=== PATIENT | female | born 1935 | race Caucasian/White ===

== ENCOUNTER 2019-05-15 10:06 | Outpatient (CLI) | payer MEDICARE, SELFPAY ==
--- NOTE | 2019-05-15 | XR_ITS ---
WS: [id number] LEFT ANKLE: 3 VIEW(S) TECHNIQUE: AP, oblique(s) and lateral. HISTORY: SPRAIN OF LEFT ANKLE COMPARISON: None available. Normal anatomic alignment with no fracture or dislocation. Mild narrowing of the joint space. Diffuse mild osteopenia. No soft tissue abnormality. XR/XR ankle LT min 3V* [id number] IMPRESSION: Mild osteopenia and joint space narrowing. Otherwise negative.
== END 2019-05-15 10:07 | disposition home or self-care (01) ==
LOC: RADOUTREAD 13:47
PROVIDERS: Visit Provider Family Medicine
DX: Z76.89 Persons encountering health services in other specified circumstances (principal)

== ENCOUNTER 2023-01-11 13:36 | Outpatient (CLI) | payer MEDICARE, SELFPAY ==
--- NOTE | 2023-01-11 | MR_ITS ---
WS: [id number] MRI LUMBAR SPINE WITHOUT CONTRAST TECHNIQUE: Sagittal T1, T2 and STIR imaging. Axial T1 and T2 imaging. Gadolinium was not administered due to patient's inability to tolerate further imaging CLINICAL INFORMATION: LOW BACK PAIN COMPARISON: None. FINDINGS: Advanced thoracolumbar scoliosis convex RIGHT lumbar spine limits examination. Some images degraded b y patient motion. Advanced disc space narrowing throughout the lumbar spine. Mild central canal steno sis in the cervical spine on the cardiology physician assistant imaging with slight anterolisthesis C3 on C4. Disc bulging wor se at C4-C5 C5-C6 and C6-C7. Small central protrusion T10-11. L1-L2: Mild disc bulge with mild central canal stenosis. Impingement LEFT subarticular recess. Mild f acet arthropathy. Mild LEFT foraminal narrowing. L2-L3: Disc osteophyte complex with endplate ridging. Mild central canal stenosis. Impingement LEFT s ubarticular recess. Mild facet arthropathy. Mild LEFT foraminal narrowing. L3-L4: Disc osteophyte complex with endplate ridging. Moderate central canal stenosis. Impingement tr aversing L4 nerve roots bilaterally. Moderate facet arthropathy. Moderate LEFT foraminal narrowing. L4-L5: Small central disc protrusion in combination with facet arthropathy and ligamentum flavum hype rtrophy results in severe central canal stenosis. Mild LEFT and severe RIGHT foraminal narrowing. L5-S1: Mild disc bulging with slight impingement traversing S1 nerve roots bilaterally. Moderate to a dvanced facet arthropathy. Moderate RIGHT and mild LEFT foraminal narrowing. Partially visualized sacral insufficiency fractures with edema. Partially visualized slightly displac ed fracture involving the upper sacrum with evidence of healing. This will be discussed on the sacral MRI. IMPRESSION: Advanced thoracolumbar scoliosis limits examination. 1. Severe central canal stenosis L4-5 due to disc bulging with facet arthropathy and ligamentum flav um hypertrophy. Central canal measures only 5 mm at this level. 2. Mild central canal stenosis L1-2 and L2-3 with impingement LEFT subarticular recess at these leve ls. 3. Moderate central canal stenosis L3-4. 4. Severe RIGHT L4-5 foraminal narrowing impinges the exiting RIGHT L4 nerve root. Moderate RIGHT L5 -S1 foraminal narrowing. Moderate LEFT L3-4 foraminal narrowing. 5. Partially visualized edema with fractures/insufficiency fractures in the sacrum. This will be dis cussed on the sacral MRI.
--- NOTE | 2023-01-11 13:51 | MR_ITS ---
WS: [id number] INDICATION: Sacral pain TECHNIQUE: Coronal T2, coronal STIR, sagittal T1, sagittal T2, axial T1, axial T2. FINDINGS: Some images are graded by motion Diffuse bilateral sacral edema with visualized fracture lines of the sacral ala compatible with sacra l insufficiency fractures. Associated presacral soft tissue edema. In addition evidence of partially healed fracture involving the anterior S2 vertebral body with degenerative edema at S1 and S2. Advanced thoracolumbar scoliosis partially visualized. IMPRESSION: 1. Diffuse sacral edema with bilateral sacral insufficiency fractures with visualized fracture lines in the sacral ala. 2. Evidence of partially healed fracture involving the anterior S2 vertebral body in the midline. 3. Presacral soft tissue edema. 4. Thoracolumbar scoliosis.
== END 2023-01-11 13:37 | disposition home or self-care (01) ==
PROVIDERS: PCP Family Medicine; Visit Provider Family Medicine
DX: M54.50 Low back pain, unspecified (principal); M41.84 Other forms of scoliosis, thoracic region
CPT/HCPCS: 72148; 72158; A9577

== ENCOUNTER 2024-07-02 12:07 | Inpatient (IN) | payer MEDICARE, SELFPAY ==
[2024-07-02] VITALS (7 sets, daily range): BP systolic 120–153; BP diastolic 71–93; PULSE 66–75; RESP 16–19; TEMP 36.5; O2SAT 93–95; BMI 13.7
--- NOTE | 2024-07-02 14:11 | ED_ITS ---
HPI - COVID 2 General: Chief Complaint: COVID symptoms Stated Complaint: not eatting/drinking Time Seen by Provider: 07/02/24 14:11 History of Present Illness: 89-year-old female presents to the emerg ency room with complaint of shortness of breath chest congestion nonproductive cough. She was seen over the weekend in urgent care and given doxycycline and has not had any improvement. She noticed anything she eats she becomes nauseated she has not vomited. She has had some weight loss. She is significantly underweight to begin with. COVID 19 common symptoms: positive non-productive cough, dyspnea, fatigue, body aches, nausea and vomiting; negative fever(s) or chills COVID 19 other sytmptoms: negative chest pain COVID Results: 2 SARS-CoV-2 (PCR) Negative (Negative) 07/02/24 13:10 07/02/24 Related Data Home Medications ?Medication ?Instructions ?Recorded ?Confirmed doxycycline hyclate 100 mg capsule 100 mg PO BID acute bronchitis 07/02/24 07/02/24 escitalopram oxalate 10 mg tablet 10 mg PO QPM 5 07/02/24 gemfibrozil 600 mg tablet 600 mg PO BID 07/02/2407/02 levothyroxine 50 mcg tablet 50 mcg PO DAILY 07/02/24 0 07/02/24 losartan 100 1 tab PO DAILY 07/02/2406/14 mg-hydrochlorothiazide 25 mg tablet metoprolol tartrate 50 mg tablet 50 mg PO BID 07/02/24 07/02/24 tramadol 50 mg tablet 100 mg PO Q8H 07/02/2407/02 Allergies Allergy/AdvReac Type Severity Reaction Status Date / Time No Known Allergies Allergy Verified 07/02/24 13:12 Review of Systems 2 Const: Reports: body aches, change in appetite, change in weight, fatigue and malaise; Denies: fever(s) or chills Card: Denies: chest pain Resp: Reports: dyspnea, non-productive cough, wheezing and chest congestion GI: Reports: abdominal pain, nausea and vomiting; Denies: hematemesis, coffee ground emesis or hematochezia : Denies: dysuria, urinary frequency or urinary urgency Musc: Denies: neck pain or back pain Skin/Breast: Denies: rash PFSH ED 2 PFSH: Medical History Back pain Depression Hypothyroidism Dehydration Hypertension Physical Exam 2 Const: COMMON NORMALS: no acute distress GENERAL APPEARANCE: cooperative and comfortable ORIENTATION/CONSCIOUSNESS: Yes awake, Yes oriented to person, Yes oriented to place and Yes oriented to time HENMT: COMMON NORMALS: normocephalic, atraumatic and hearing grossly normal bilaterally HEAD & SCALP: normocephalic and atraumatic Resp: COMMON NORMALS: normal respiratory effort, No retractions, No use of accessory muscles and clear to auscultation bilaterally AUSCULTATION: clear to auscultation bilaterally Cardio: COMMON NORMALS: regular rate, regular rhythm and No murmurs present (Cardio) RATE: regular rate RHYTHM: regular rhythm GI: COMMON NORMALS: Soft to palpation and No hepatosplenomegaly present A USCULTATION: Yes normoactive bowel sounds PALPATION: Yes Soft to palpation, No Tenderness to palpation present (GI), No Guarding due to palpation present (GI) and Yes No hepatosplenomegaly present Extremity: COMMON NORMALS: normal to inspection, capillary refill normal, no clubbing, cyanosis or edema, no calf tenderness and no pedal edema Neuro: SENSORIUM/ORIENTATION: Yes oriented to person, Yes oriented to place and Yes oriented to time Skin: COMMON NORMALS: no rashes or lesions noted GENERAL SKIN EXAM: no rashes or lesions noted Course 2 Vital Signs: Vital signs: Vital Signs Temperature 97.7 F 07/02/24 13:09 Pulse Rate 69 07/03/24 05:38 Respiratory Rate 16 07/02/24 18:37 Blood Pressure 153/93 07/02/24 18:24 Pulse Oximetry 93 07/02/24 22:39 Oxygen Delivery Me thod Room Air 07/02/24 22:39 MDM - COVID Medical Decision Making Hyponatremia with acute kidney injury. Positive for RSV. Discussed with Dr. Alicia. Oxygen saturations normal placed on observation Medical Records I reviewed the patient's medical records. Lab Data I reviewed the patient's lab results. 07/03/24 04:14 07/03/24 04:14 Radiology Impressions Chest X-Ray 07/02/24 14:38 Impression: Atherosclerosis and hyperinflation. Laboratory Results WBC 11.58 10^3/uL (3.29-11.43) H 07/02/24 14:43 RBC 4.35 10^6/uL (3.85-5.65) 07/02/24 14:43 Hgb 12.50 g/dL (11.27-16.99) 07/02/24 14:43 Hct 37.8 % (36-47) 07/02/24 14:43 MCV 86.9 fl (85-98) 07/02/24 14:43 MCH 28.7 pg (27-33) 07/02/24 14:43 MCHC 33.1 g/dL (30-55) 07/02/24 14:43 RDW 14.0 % (12.1-15.1) 07/02/24 14:43 Plt Count 413 10^3/cmm (157-399) H 07/02/24 14:43 MPV 9.8 fL (7.4-10.4) 07/02/24 14:43 Lymph % (Auto) Not Reportable 07/02/24 14:43 Mayes % (Auto) Not Reportable 07/02/24 14:43 Lymph # (Auto) Not Reportable 07/02/24 14:43 Mayes # (Auto) Not Reportable 07/02/24 14:43 Total Counted 100 (0-100) 07/02/24 14:43 Atypical Lymphs % 0.0 % (0-5) 07/02/24 14:43 Absolute Neutrophils 7.9 10^3/cmm (1.4-6.5) H 07/02/24 14:43 Segmented Neutrophils 66 % 07/02/24 14:43 Band Neutrophils 2.0 % 07/02/24 14:43 Absolute Lymphocytes 2.0 10^3/cmm (1.2-3.4) 07/02/24 14:43 Lymphocytes (Manual) 17 % 07/02/24 14:43 Monocytes (Manual) 10.0 % 07/02/24 14:43 Absolute Monocytes 1.2 10^3/cmm (0.1-0.6) H 07/02/24 14:43 Eosinophils (Manual) 1 % 07/02/24 14:43 Absolute Eosinophils 0.1 10^3/cmm (0.0-0.7) 07/02/24 14:43 Basophils (Manual) 1.0 % 07/02/24 14:43 Absolute Basophils 0.1 10^3/cmm (0.0-0.2) 07/02/24 14:43 Metamyelocytes 1.0 % 07/02/24 14:43 Myelocytes 2.0 % 07/02/24 14:43 Platelet Estimate Increased (Normal) H 07/02/24 14:43 Sodium 118 mmol/L (136-145) L* 07/02/24 14:43 Potassium 3.7 mmol/L (3.5-5.1) 07/02/24 14:43 Chloride 78 mmol/L (98-107) L 07/02/24 14:43 Carbon Dioxide 23 mmol/L (22-29) 07/02/24 14:43 Anion Gap 20.7 (5-19) H 07/02/24 14:43 BUN 29 mg/dL (8-23) H 07/02/24 14:43 Creatinine 1.2 mg/dL (0.5-0.9) H 07/02/24 14:43 GFR Calculation Not Reportable 07/02/24 14:43 Glucose 110 mg/dL (65-115) 07/02/24 14:43 Calculated Osmolality 252 mOsm/kg (285-295) L 07/02/24 14:43 Calcium 9.1 mg/dL (8.5-10.5) 07/02/24 14:43 Total Bilirubin 0.7 mg/dL (0.15-1.2) 07/02/24 14:43 AST 27 U/L (0-32) 07/02/24 14:43 ALT 12 U/L (0-33) 07/02/24 14:43 Alkaline Phosphatase 127 U/L (35-105) H 07/02/24 14:43 Creatine Kinase 206 U/L (26-192) H 07/02/24 14:43 Total Protein 7.4 g/dL (6.6-8.7) 07/02/24 14:43 Albumin 3.7 g/dL (3.5-5.2) 07/02/24 14:43 Globulin 3.7 g/dL (1.3-4.6) 07/02/24 14:43 Urine Color Yellow (Yellow) 07/02/24 15:58 Urine Appearance Clear (CLEAR) 07/02/24 15:58 Urine pH 6.0 (5-7) 07/02/24 15:58 Ur Specific [place] 1.014 (1.005-1.030) 07/02/24 15:58 Urine Protein Trace (Negative) A 07/02/24 15:58 Urine Glucose (UA) Negative (Normal) 07/02/24 15:58 Urine Ketones Negative (Negative) 07/02/24 15:58 Urine Blood Negative (Negative) 07/02/24 15:58 Urine Nitrate Negative (Negative) 07/02/24 15:58 Urine Bilirubin Negative (Negative) 07/02/24 15:58 Urine Urobilinogen 1.0 mg/dL (Negative) 07/02/24 15:58 Ur Leukocyte Esterase Negative (Negative) 07/02/24 15:58 Urine RBC 0-2 /hpf (0-2) 07/02/24 15:58 Urine WBC 0-5 /hpf (0-5) 07/02/24 15:58 Ur Squamous Epith Cells 0-5 /hpf (0-5) 07/02/24 15:58 Amorphous Sediment Not Reportable 07/02/24 15:58 Urine Bacteria None seen /hpf (NONE) 07/02/24 15:58 Hyaline Casts 0-4 /lpf H 07/02/24 15:58 Ur Random Sodium 55 mmol/L 07/02/24 15:58 Ur Random Chloride 52 mmol/L 07/02/24 15:58 Urine Creatinine 79 mg/dL (28-217) 07/02/24 15:58 Influenza A (PCR) Negative (Negative) 07/02/24 13:10 Influenza Type B (PCR) Negative (Negative) 07/02/24 13:10 RSV (PCR) Positive (Negative) A 07/02/24 13:10 SARS-CoV-2 (PCR) Negative (Negative) 07/02/24 13:10 2 SARS-CoV-2 (PCR) Negative (Negative) 07/02/24 13:10 07/02/24 All radiology interpretation(s) finalized by discharge Discharge Plan Discharge Patient Disposition: Placed in Observation Admit Provider: Vidya Alicia Clinical Impression: Hyponatremia, KRISTEN (acute kidney injury), RSV bronchiolitis Coding Level of Care Code ED Information Assistant for Darshanag Julio César
--- NOTE | 2024-07-02 14:34 | ECG_ITS ---
[facility] Date: 2024-07-02 Pat Name: Shruti Ureña Department: Room: Gender: Female Parker: : 1935 Requested By: Jose Eduardo Malagon Order Number: [id number] Brigid MD: Akhil Castro M.D. Measurements Intervals [place] Rate: 69 P: 75 OK: 163 QRS: 78 QRSD: 90 T: 84 QT: 428 QTc: 460 Interpretive Statements SINUS RHYTHM POSSIBLE RIGHT VENTRICULAR CONDUCTION DELAY [RSR (QR) IN V1/V2] No previous ECG available for comparison Electronically Signed On 07-02-2024 22:00:07 CDT by Akhil Castro M.D. [email or web address]
--- NOTE | 2024-07-02 14:38 | XR_ITS ---
WS: [id number] Portable AP semiupright chest, 07/02/2024 Clinical Data: dyspnea/cough Comparison: None. Findings: No nodules, masses or effusions are seen. The heart is normal. The pulmonary vascularity is not increased. No pneumonia or pneumothorax is seen. The aortic arch shows calcification and tortuosity. The diaphragms are flattened. There is a small calcification over the greater tuberosity of the right shoulder, probably calcific bursitis and/or tendinitis. XR/XR chest 1V portable [id number] Impression: Atherosclerosis and hyperinflation.
[2024-07-02 15:06] LABS: Hematocrit 37.8 % (36-47); Mean Corpuscular HGB Conc 33.1 g/dL (30-55); Mean Corpuscular Hemoglobin 28.7 pg (27-33); Mean Corpuscular Volume 86.9 fl (85-98); Mean Platelet Volume 9.8 fL (7.4-10.4); Platelet Count 413 10^3/cmm (157-399); Red Blood Count 4.35 10^6/uL (3.85-5.65); White Blood Count 11.58 10^3/uL (3.29-11.43)
[2024-07-02 15:26] LABS: Slide Review Slide Review Perform
[2024-07-02 15:27] LABS: Absolute Eosinophils 0.1 10^3/cmm (0.0-0.7); Absolute Neutrophil 7.9 10^3/cmm (1.4-6.5); Absolute Segmented Neutrophil 7.6 10/cmm (1.6-7.1); Band Neutrophils Absolute 0.2 10^3/cmm (0.0-1.2); Basophils Absolute 0.1 10^3/cmm (0.0-0.2); Eosinophils 1 %; Lymphocytes 17 %; Monocytes Absolute 1.2 10^3/cmm (0.1-0.6); Platelet Estimate Increased (Normal); Segmented Neutrophils 66 %; Total Cells Counted 100 (0-100)
[2024-07-02 15:28] LABS: Alanine Aminotransferase 12 U/L (0-33); Albumin Level 3.7 g/dL (3.5-5.2); Alkaline Phosphatase 127 U/L (35-105); Anion Gap 20.7 (5-19); Aspartate Amino Transferase 27 U/L (0-32); Blood Urea Nitrogen 29 mg/dL (8-23); Calcium 9.1 mg/dL (8.5-10.5); Carbon Dioxide 23 mmol/L (22-29); Chloride 78 mmol/L (98-107); Creatine Phosphokinase 206 U/L (26-192); Globulin 3.7 g/dL (1.3-4.6); Glucose 110 mg/dL (65-115); Osmolality Calculated 252 mOsm/kg (285-295); Potassium 3.7 mmol/L (3.5-5.1); Total Bilirubin 0.7 mg/dL (0.15-1.2); Total Protein 7.4 g/dL (6.6-8.7)
[2024-07-02 15:30] LABS: Sodium 118 mmol/L (136-145)
[2024-07-02] MEDS: sodium chloride 0.9% 1,000 ML 999 ML IV (16:01)
[2024-07-02 16:17] LABS: Bilirubin Urine Negative (Negative); Blood Urine Negative (Negative); Glucose Urine UA Negative (Normal); Ketones Urine Negative (Negative); Leukocyte Esterase Urine Negative (Negative); Nitrate Urine Negative (Negative); Protein Urine Trace (Negative); Specific Gravity, Urine 1.014 (1.005-1.030); Urine Appearance Clear (CLEAR); Urine Color Yellow (Yellow)
[2024-07-02 16:23] LABS: Add Urine Microscopic? YES; Bacteria Urine None Seen /hpf; Hyaline Casts Urine 0-4 /lpf; RBC Urine 0-2 /hpf (0-2); Squamous Epithelial Cell Urine 0-5 /hpf (0-5); WBC Urine 0-5 /hpf (0-5)
[2024-07-02 16:24] LABS: Influenza A NEGATIVE (Negative); Influenza B NEGATIVE (Negative); SARS-CoV-2 PCR NEGATIVE (Negative)
[2024-07-02 16:29] LABS: Respiratory Syncytial Virus Ce POSITIVE (Negative)
[2024-07-02 16:35] LABS: Add Urine Culture? No
--- NOTE | 2024-07-02 17:35 | PM.CONSULT ---
Providers/Reason For Consult Consulting Physician/Specialty*: mickey jacobs md/ telenephrology Reason for Consult*: hyponatremia Requesting Physician: Dr Campbell Attending Physician: Vidya Alicia MD Primary Care Provider: Crissy Cruz MD History of Present Illness History of Present Illness Shruti Ureña is a 89 year old female brought to the emergency room for confusion. The patient's family gave most of the history the patient had been feeling well for the last couple weeks she went to see urgent care and was started doxycycline. The patient at home is on Lexapro she also takes losartan hydrochlorothiazide however per the family there is no new medication. She has not been eating well for the last couple weeks not drinking fluids. They brought her to the hospital for fear of volume depletion. In the emergency room she was found of a sodium of 118. And also elevated creatinine. Review of Systems Narrative: Weak lethargic poor appetite weight loss confusion nausea not eating or drinking. Medications/Allergies Home Medications ?Medication ?Instructions ?Recorded ?Confirmed ?Last Taken ?Type doxycycline hyclate 100 mg capsule 100 mg PO BID acute bronchitis 07/02/24 07/02/24 07/02/24 History escitalopram oxalate 10 mg tablet 10 mg PO QPM 07/02/24 07/02/24 07/01/24 History gemfibrozil 600 mg tablet 600 mg PO BID 07/02/24 07/02/24 07/02/24 History levothyroxine 50 mcg tablet 50 mcg PO DAILY 07/02/24 07/02/24 07/02/24 History losartan 100 1 tab PO DAILY 07/02/24 07/02/24 07/02/24 History mg-hydrochlorothiazide 25 mg tablet metoprolol tartrate 50 mg tablet 50 mg PO BID 07/02/24 07/02/24 07/02/24 History tramadol 50 mg tablet 100 mg PO Q8H 07/02/24 07/02/24 Unknown History Allergies Allergy/AdvReac Type Severity Reaction Status Date / Time No Known Allergies Allergy Verified 07/02/24 13:12 Vitals/I&O/Wt Last Vital Signs Temp 97.7 F 07/02/24 13:09 Pulse 75 07/02/24 16:08 Resp 19 H 07/02/24 16:08 BP 120/71 07/02/24 13:09 Pulse Ox 94 07/02/24 13:42 O2 Del Method Room Air 07/02/24 13:42 Weight last 48 hrs Weight 39.009 kg Physical Exam Narrative: Elderly lady in bed, no apparent distress. Vital signs noted. HEENT normocephalic atraumatic Neck is supple Lungs clear to auscultation Heart regular Abdomen is soft positive bowel sounds. Extremities no edema. Neuro awake and interactive knows she is in the emergency room has underlying dementia follows commands. Data 07/02/24 14:43 07/02/24 14:43 A&P Assessment and plan (1) Hyponatremia: 89-year-old lady with hypertension on thiazide depression on Lexapro chronic pain on tramadol and hypothyroidism on levothyroxine. 1. Hyponatremia will check urine electrolytes, osmolality creatinine. Will free water restrict the patient the patient's hyponatremia is likely from her thiazide not eating well and also from being on Lexapro. SSRIs can cause hyponatremia especially in elderly women. Will also check a TSH level as patient has hypothyroidism. Regarding treatment will free water restrict the patient -Will monitor serum chemistries every 4-6 hours. For now continue with normal saline. If serum sodium drops or if she becomes more confused she may need hypertonic saline. 2. Creatinine 1.2 is elevated for her given her age and her thin appearance. Likely prerenal. Noticed her urinalysis does not have any red cells blood or protein or ketones. She does have a few hyaline cast which is significant for volume depletion. The patient was seen examined using audiovisual equipment with the aid of a nurse. The patient and her family consented to telehealth. Will monitor her labs along with you. Plan See above give IV fluids and monitor labs PDMP PDMP Reviewed: Not Reviewed Consult Attestations Medical Necessity Statement: Altered mental status with hyponatremia. Time Spent in Patient Care: Greater than 35 minutes (>than 50% of time spent in counselling and/or direct pt care on unit). Coding Level of Care Code Acute Code for [facility] Fwd Diagnoses Hyponatremia E87.1
[2024-07-02] MEDS: sodium chloride 0.9% 1,000 ML 90 ML IV (18:04)
[2024-07-02 18:30] LABS: Glucose Point of Care 82 mg/dL (70-110)
[2024-07-02] MEDS: heparin 5,000 unit/mL INJ 1 mL 5000 UNIT SUBCUT (18:30)
[2024-07-02] MEDS: metoprolol tartrate 50 mg Tablet PO (18:30)
[2024-07-02] MEDS: TRAMadol 50 mg Tablet 100 MG PO (18:30)
[2024-07-02] MEDS: sodium chloride 0.9% 1,000 ML 125 ML IV (18:31)
[2024-07-02 19:06] LABS: Chloride Urine Random 52 mmol/L; Urine Creatinine 79 mg/dL (28-217); Urine Random Sodium 55 mmol/L
[2024-07-02 20:03] LABS: Sodium 122 mmol/L (136-145); Thyroid Stimulating Hormone 2.32 uIU/mL (0.27-4.20); Uric Acid 3.3 mg/dL (2.4-5.7)
[2024-07-02 20:33] LABS: Glucose Point of Care 112 mg/dL (70-110)
[2024-07-02 20:42] LABS: Anion Gap 17.2 (5-19); Blood Urea Nitrogen 28 mg/dL (8-23); Calcium 8.5 mg/dL (8.5-10.5); Carbon Dioxide 24 mmol/L (22-29); Chloride 85 mmol/L (98-107); Creatinine Clr Calc Pharmacy 20.9745; Glucose 99 mg/dL (65-115); Osmolality Calculated 260 mOsm/kg (285-295); Potassium 4.2 mmol/L (3.5-5.1); Sodium 122 mmol/L (136-145)
--- NOTE | 2024-07-02 22:11 | PM.HP ---
Providers/Chief Complaint Admitting Physician: Vidya Alicia MD Primary Care Provider: Crissy Cruz MD Chief Complaint: not eatting/drinking History of Present Illness Shruti Ureña is a 89 year old female who presented from her home with chief complaint generalized weakness and fatigue stating that she has been suffering from flulike symptoms for the last 3 to 4 days, experience fever 102, endorsing nausea but no vomiting or diarrhea. She is endorsing poor p.o. intake. Patient is stating that she had some toast in the breakfast and skip her lunch because of poor appetite. Family brought her in for concerns related to dehydration. In the ER workup consistent with severe hyponatremia, she is not showing any signs of neurological deficits, seizure or worsening of confusion, lab work consistent with hemoconcentration, KRISTEN CPK 200 Respiratory panel positive for RSV She has not been feeling well for last few weeks, she was given doxycycline by urgent care She takes combination of medication including losartan hydrochlorothiazide, Lexapro Nephro consulted: Patient admitted to ICU Repeat sodium showed improvement IV fluids discontinued, she was put on fluid restriction as per nephro recommendations Review of Systems Const: Reports: fever(s) and chills Eyes: Denies: change in vision ENMT: Denies: throat pain Card: Denies: swelling of feet/ankles Resp: Reports: dyspnea GI: Reports: nausea; Denies: abdominal pain : Denies: flank pain Medications/Allergies Home Medications ?Medication ?Instructions ?Recorded ?Confirmed ?Last Taken ?Type doxycycline hyclate 100 mg capsule 100 mg PO BID acute bronchitis 07/02/24 07/02/24 07/02/24 History escitalopram oxalate 10 mg tablet 10 mg PO QPM 07/02/24 07/02/24 07/01/24 History gemfibrozil 600 mg tablet 600 mg PO BID 07/02/24 07/02/24 07/02/24 History levothyroxine 50 mcg tablet 50 mcg PO DAILY 07/02/24 07/02/24 07/02/24 History losartan 100 1 tab PO DAILY 07/02/24 07/02/24 07/02/24 History mg-hydrochlorothiazide 25 mg tablet metoprolol tartrate 50 mg tablet 50 mg PO BID 07/02/24 07/02/24 07/02/24 History tramadol 50 mg tablet 100 mg PO Q8H 07/02/24 07/02/24 Unknown History Allergies Allergy/AdvReac Type Severity Reaction Status Date / Time No Known Allergies Allergy Verified 07/02/24 13:12 PFSH Acute PFSH: Medical History Back pain Depression Hypothyroidism Dehydration Hypertension Vitals/I&O/Wt Last Vital Signs Temp 97.7 F 07/02/24 13:09 Pulse 74 07/02/24 18:37 Resp 16 07/02/24 18:37 BP 153/93 07/02/24 18:24 Pulse Ox 95 07/02/24 18:37 O2 Del Method Room Air 07/02/24 18:37 07/02/24 07/02/24 07/02/24 06:59 14:59 22:59 Intake Total 1000 / 1000 Balance 1000 / 1000 Weight last 48 hrs Weight 41 kg Weight 39.009 kg Physical Exam Narrative: Clinically dehydrated Hypovolemic in appearance Hypertensive Currently on room air GCS 15 Nonfocal neuroexam Able to answer my questions Hard of hearing Pleasant and very cooperative No sign of focal deficit or seizure No sign of lower extremity edema Sarcopenia S1, S2 Data 07/02/24 14:43 07/02/24 20:05 A&P Assessment and plan (1) Hyponatremia: (2) KRISTEN (acute kidney injury): Plan Hypovolemic hyponatremia Requested TSH uric acid along urine and serum osmolarity, urine sodium IV fluids did improve her sodium from 1 18-122: IV fluids on hold As per nephro she was put on fluid restriction Discontinue hydrochlorothiazide and losartan Patient endorsing poor p.o. intake Frequent sodium check every 4 hours Goal sodium correction 6 mEq in 24 hours KRISTEN: Anticipate improvement with IV fluids discontinue combination of losartan and hydrochlorothiazide Sweeney catheter in place Hypertension: Will need to adjust her antihypertensive medication continue regimen I will continue metoprolol, add amlodipine Avoid losartan and hydrochlorothiazide Full code Regular diet with fluid restriction DVT prophylaxis: Heparin Family not at the bedside: Will touch base with PCP to get more records about her past medical history PDMP PDMP Reviewed: Not Reviewed Attestations Medical Necessity Statement*: Anticipating stay in the hospital because more than 2 midnights Diagnoses Hyponatremia E87.1 KRISTEN (acute kidney injury) N17.9
[2024-07-03] VITALS (119 sets, daily range): BP systolic 112–159; BP diastolic 46–96; PULSE 59–81; RESP 10–28; TEMP 36.5–36.9; O2SAT 88–99
--- OUTSIDE RECORDS SUMMARY | 2024-07-03 00:06 | XMS_ITS ---
Author Organization Unknown TREATMENT PLAN [facility] Start Date Provider Encounter for Check-up [phone] Michael cabrera [facility]
[2024-07-03 01:07] LABS: Anion Gap 16.8 (5-19); Blood Urea Nitrogen 28 mg/dL (8-23); Calcium 8.5 mg/dL (8.5-10.5); Carbon Dioxide 24 mmol/L (22-29); Chloride 85 mmol/L (98-107); Creatinine Clr Calc Pharmacy 22.8813; Glucose 92 mg/dL (65-115); Osmolality Calculated 259 mOsm/kg (285-295); Potassium 3.8 mmol/L (3.5-5.1); Sodium 122 mmol/L (136-145)
[2024-07-03] MEDS: sodium chloride 0.9% 1,000 ML 100 ML IV (02:30)
[2024-07-03 02:42] LABS: Potassium, Radom Urine 21 mmol/L; Urine Random Chloride 70 mmol/L; Urine Random Sodium 74 mmol/L
[2024-07-03] MEDS: TRAMadol 50 mg Tablet 100 MG PO ×3 (04:39→18:00)
[2024-07-03 04:45] LABS: Basophils # 0.1 10^3/uL (0.0-0.1); Basophils % 0.9 %; Eosinophils % 0.4 %; Hematocrit 34.7 % (36-47); Lymphocytes # 1.2 10^3/uL (0.8-4.8); Lymphocytes % 11.9 %; Mean Corpuscular HGB Conc 33.4 g/dL (30-55); Mean Corpuscular Hemoglobin 28.5 pg (27-33); Mean Corpuscular Volume 85.3 fl (85-98); Mean Platelet Volume 9.3 fL (7.4-10.4); Monocytes # 1.4 10^3/uL (0.2-0.9); Monocytes % 14.3 %; Neutrophils # 6.55 10^3/uL (1.8-7.7); Neutrophils % 65.9 %; Nucleated Red Blood Cells % 0 %; Platelet Count 443 10^3/cmm (157-399); Red Blood Count 4.07 10^6/uL (3.85-5.65); Red Cell Distribution Width 13.9 % (12.1-15.1); White Blood Count 9.94 10^3/uL (3.29-11.43)
[2024-07-03 05:01] LABS: Anion Gap 17.5 (5-19); Blood Urea Nitrogen 27 mg/dL (8-23); C Reactive Protein 122.1 mg/L (0.0-4.9); Calcium 8.6 mg/dL (8.5-10.5); Carbon Dioxide 24 mmol/L (22-29); Chloride 86 mmol/L (98-107); Creatinine Clr Calc Pharmacy 22.6023; Glucose 86 mg/dL (65-115); Magnesium 1.8 mg/dL (1.7-2.3); Osmolality Calculated 262 mOsm/kg (285-295); Potassium 3.5 mmol/L (3.5-5.1); Sodium 124 mmol/L (136-145)
[2024-07-03 05:16] LABS: Slide Review Slide Review Perform
--- NOTE | 2024-07-03 05:34 | PC.NURSE ---
Dr. Mahoney consulted for hypernatremia. Updated on 2000 labs, ordered to discontinue IV fluids. Updated on 0000 labs, ordered to restart NS at 100 ml/hr and get urine electrolytes. Updated on 0400 labs and reported improving sodium and results from urine electrolytes. No new orders with last update.
[2024-07-03] MEDS: heparin 5,000 unit/mL INJ 1 mL 5000 UNIT SUBCUT ×2 (06:18→18:01)
[2024-07-03 07:24] LABS: Glucose Point of Care 92 mg/dL (70-110)
[2024-07-03 08:03] LABS: Anion Gap 15.6 (5-19); Blood Urea Nitrogen 26 mg/dL (8-23); Calcium 8.1 mg/dL (8.5-10.5); Carbon Dioxide 26 mmol/L (22-29); Chloride 87 mmol/L (98-107); Creatinine Clr Calc Pharmacy 22.6023; Glucose 97 mg/dL (65-115); Osmolality Calculated 265 mOsm/kg (285-295); Potassium 3.6 mmol/L (3.5-5.1); Sodium 125 mmol/L (136-145)
[2024-07-03] MEDS: predniSONE 10 mg Tablet PO (08:24)
[2024-07-03] MEDS: levothyroxine 50 mcg Tablet PO (08:24)
[2024-07-03] MEDS: metoprolol tartrate 50 mg Tablet PO ×2 (08:24→18:01)
[2024-07-03] MEDS: amlodipine 10 mg Tablet PO (08:24)
--- NOTE | 2024-07-03 09:30 | PC.NURSE ---
Dr. Zepeda ordered to resume NS @ 100 ml/hr. Resumed fluids per order.
--- NOTE | 2024-07-03 10:30 | PM.PN ---
Subjective Subjective: The patient was seen and examined. The patient is more awake remains weak not eating well not drinking well denies vomiting. Has nausea no diarrhea positive constipation. No shortness of breath or chest pain. She is still somewhat confused Medications: Reviewed: Yes Medication Review Details: Current Medications Acetaminophen (Acetaminophen 500 Mg Tablet) 500 mg PO Q4H PRN PRN Reason: fever Albuterol/Ipratropium (Ipratropium-Albuterol 3 Ml Neb) 3 ml INHALATION Q6H PRN PRN Reason: SHORTNESS OF BREATH Amlodipine Besylate (Amlodipine 10 Mg Tablet) 10 mg PO DAILY [facility] Last Admin: 07/03/24 08:24 Dose: 10 mg Glucagon (Glucagon 1 Mg/Ml Kit 1 Ml) 1 mg IM ONCE PRN; Protocol PRN Reason: Adult Acute Hypoglycemia Nursing Prot. Heparin Sodium (Porcine) (Heparin 5,000 Unit/Ml Inj 1 Ml) 5,000 unit SUBCUT Q12H [facility] Last Admin: 07/03/24 06:18 Dose: 5,000 unit Hydralazine HCl (Hydralazine 20 Mg/Ml Inj 1 Ml) 10 mg IVP Q4H PRN PRN Reason: bp>180/90 Dextrose (D5w) 500 mls @ 0 mls/hr IV ONCE PRN; Protocol PRN Reason: Adult Acute Hypoglycemia Prot Dextrose (D10w) 125 mls @ 750 mls/hr IV PRN PRN; Protocol PRN Reason: Adult Acute Hypoglycemia Nursing Protocol Dextrose (D10w) 250 mls @ 1,000 mls/hr IV PRN PRN; Protocol PRN Reason: Adult Acute Hypoglycemia Nursing Protocol Sodium Chloride (Sodium Chloride 0.9%) 1,000 mls @ 100 mls/hr IV .Q10H [facility] Last Admin: 07/03/24 02:30 Dose: 100 mls/hr Insulin Human Lispro (Insulin Lispro 100 Unit/1 Ml) 0 unit SUBCUT WM&BEDTIME [facility]; Protocol Last Admin: 07/03/24 07:23 Dose: Not Given Levothyroxine Sodium (Levothyroxine 50 Mcg Tablet) 50 mcg PO DAILY [facility] Last Admin: 07/03/24 08:24 Dose: 50 mcg Metoprolol Tartrate (Metoprolol Tartrate 50 Mg Tablet) 50 mg PO BID [facility] Last Admin: 07/03/24 08:24 Dose: 50 mg Ondansetron HCl (Ondansetron 2 Mg/Ml Sdv 2 Ml) 4 mg IVP Q6H PRN PRN Reason: NAUSEA AND VOMITING Prednisone (Prednisone 10 Mg Tablet) 10 mg PO DAILY [facility] Last Admin: 07/03/24 08:24 Dose: 10 mg Tramadol HCl (Tramadol 50 Mg Tablet) 100 mg PO Q8H [facility] Last Admin: 07/03/24 10:03 Dose: 100 mg Vitals/I&O/Wt Last Vital Signs Temp 97.7 F 07/03/24 09:05 Pulse 67 07/03/24 09:36 Resp 16 07/03/24 09:36 BP 152/64 07/03/24 09:00 Pulse Ox 98 07/03/24 09:36 O2 Del Method Room Air 07/03/24 09:36 07/02/24 07/03/24 07/03/24 22:59 06:59 14:59 Intake Total 1000 / 1000 805.417 / 1805.417 120 / 120 Output Total 250 / 250 Balance 1000 / 1000 555.417 / 1555.417 120 / 120 Weight last 48 hrs Weight 40.5 kg Weight 41 kg Weight 39.009 kg Physical Exam Narrative: Elderly lady in bed, no apparent distress. Vital signs noted. HEENT normocephalic atraumatic Neck is supple Lungs - fine scattered crackles Heart regular Abdomen is soft positive bowel sounds. Extremities no edema. Neuro awake and interactive knows she is in the hospital. she has underlying dementia follows commands. Data 07/03/24 04:14 07/03/24 07:22 A&P Assessment and plan (1) Hyponatremia: 89-year-old lady with hypertension on thiazide depression on Lexapro chronic pain on tramadol and hypothyroidism on levothyroxine. 1. Hyponatremia -likely from diuretics and escitalopram. Please note the patient is urine sodium was elevated which can be due to her thiazide so from her S-Citalopram. The patient was also on a low protein low salt diet. The patient's sodium has improved from 05 03-05 10. Will monitor normal saline and off of Lexapro and hydrochlorothiazide. We may need to give 2% saline if sodium remains low. Will replace potassium. 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 -She has a normal TSH level, on levothyroxine as patient has hypothyroidism. -Continue free water restrict the patient -Will monitor serum chemistries every 6 hours. For now continue with normal saline. If serum sodium drops or if she becomes more confused she may need hypertonic saline. 2. KRISTEN from prerenal azotemia creatinine improved from 1.2 to 1.1 mg off of thiazides and with normal saline. 3. Hypertension avoid thiazide diuretics. She is currently on amlodipine, metoprolol and hydralazine. Will check a renal artery duplex. 4. Mild anemia of 11.6 hemoglobin monitor The patient was seen examined using audiovisual equipment with the aid of a nurse. The patient and her family consented to telehealth. Will monitor her labs along with you. Plan See above give IV fluids and monitor labs PDMP PDMP Reviewed: Not Reviewed Attestations Medical Necessity Statement*: Severe hyponatremia correcting appropriately monitor labs. Time Spent in Patient Care: Greater than 35 minutes (>than 50% of time spent in counselling and/or direct pt care on unit). Coding Level of Care Code Acute Code for [facility] Diagnoses Hyponatremia E87.1
[2024-07-03 12:05] LABS: Glucose Point of Care 104 mg/dL (70-110)
--- NOTE | 2024-07-03 12:29 | P.PN_ITS ---
Subjective 2 Subjective: seen today pt states she is feeling slightly better Vitals/I&O/Wt Last Vital Signs Temp 97.7 F 07/03/24 09:05 Pulse 66 07/03/24 11:25 Resp 18 07/03/24 11:25 BP 140/64 07/03/24 11:25 Pulse Ox 90 07/03/24 11:25 O2 Del Method Room Air 07/03/24 09:36 07/02/24 07/03/24 07/03/24 22:59 06:59 14:59 Intake Total 1000 / 1000 805.417 / 1805.417 120 / 120 Output Total 250 / 250 Balance 1000 / 1000 555.417 / 1555.417 120 / 120 Weight last 48 hrs Weight 40.5 kg Weight 41 kg Weight 39.009 kg Physical Exam 2 Narrative: Clinically dehydrated Hypovolemic in appearance Hypertensive Currently on room air GCS 15 Nonfocal neuroexam Able to answer my questions Hard of hearing Pleasant and very cooperative No sign of focal deficit or seizure No sign of lower extremity edema Sarcopenia S1, S2 Data 07/03/24 04:14 07/03/24 07:22 A&P Assessment and plan (1) Hyponatremia: (2) KRISTEN (acute kidney injury): Plan Hypovolemic hyponatremia Requested TSH uric acid along urine and serum osmolarity, urine sodium IV fluids did improve her sodium from 1 18-122: IV fluids on hold As per nephro she was put on fluid restriction Discontinue hydrochlorothiazide and losartan Patient endorsing poor p.o. intake Frequent sodium check every 4 hours Goal sodium correction 6 mEq in 24 hours KRISTEN: Anticipate improvement with IV fluids discontinue combination of losartan and hydrochlorothiazide Sweeney catheter in place Hypertension: Will need to adjust her antihypertensive medication continue regimen I will continue metoprolol, add amlodipine Avoid losartan and hydrochlorothiazide Full code Regular diet with fluid restriction DVT prophylaxis: Heparin Family not at the bedside: Will touch base with PCP to get more records about her past medical history 07/03/2024 continue bmp q4h Will monitor normal saline and off of Lexapro and hydrochlorothiazide. We may need to give 2% saline if sodium remains low. Will replace potassium. 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 -She has a normal TSH level, on levothyroxine as patient has hypothyroidism. -Continue free water restrict the patient -Will monitor serum chemistries every 6 hours. For now continue with normal saline. If serum sodium drops or if she becomes more confused she may need hypertonic saline. will transfer to floor today appreciate recommendations from nephrology PDMP PDMP Reviewed: Not Reviewed Attestations 2 Medical Necessity Statement*: Anticipating stay in the hospital because more than 2 midnights Diagnoses Hyponatremia E87.1 KRISTEN (acute kidney injury) N17.9
[2024-07-03 12:35] LABS: Anion Gap 17.6 (5-19); Blood Urea Nitrogen 25 mg/dL (8-23); Calcium 8.7 mg/dL (8.5-10.5); Carbon Dioxide 24 mmol/L (22-29); Chloride 84 mmol/L (98-107); Creatinine Clr Calc Pharmacy 22.6023; Glucose 94 mg/dL (65-115); Osmolality Calculated 258 mOsm/kg (285-295); Potassium 3.6 mmol/L (3.5-5.1); Sodium 122 mmol/L (136-145)
--- NOTE | 2024-07-03 16:26 | USCV_ITS ---
Shruti Ureña Age: 89 Gender: F : 1935 Exam Date: 07/03/2024 16:59 Ordering Phys: Stepan Zepeda MD Technologist: [employer] [place]am [place] [facility] [place] Indication: htn, ciaran tds. pt inability to hold breath or still Aortic Velocity @ SMA (cm/s) 67.9 RIGHT KIDNEY LEFT KIDNEY Velocity (cm/s) Velocity (cm/s) Sys/Givens Sys/Givens Resistive Index Resistive Index 17.6 / 5.7 0.68 Proximal Renal Artery 53.8 / 11.6 0.78 38.2 / 6.9 0.82 Mid Renal Artery 64.5 / 14.3 0.78 33.9 / 8.7 0.74 Distal Renal Artery 73.8 / 15.0 0.80 21.8 / 3.9 0.82 Hilar 50.6 / 12.6 0.75 16.1 / 5.4 0.66 Upper Pole 27.5 / 7.9 0.71 15.0 / 3.6 0.76 Mid Pole 26.5 / 6.2 0.77 13.5 / 4.3 0.68 Lower Pole 29.2 / 6.1 0.79 0.56 Renal Aortic Ratio 1.09 Accleration Time (sec) 0.23 Hilar 0.18 0.16 Upper Pole 0.20 0.23 Mid Pole 0.22 0.13 Lower Pole 0.25 7.6 Kidney Length (cm) 8.3 CONCLUSIONS No sonographic evidence of hemodynamically significant renal artery stenosis bilaterally. No hydronephrosis in either kidney Raimundo Sanders MD (Electronically Signed) Final Date: 04 July 2024 09:29 S
[2024-07-03 16:40] LABS: Glucose Point of Care 103 mg/dL (70-110)
[2024-07-03 18:42] LABS: Anion Gap 15.8 (5-19); Blood Urea Nitrogen 26 mg/dL (8-23); Calcium 8.7 mg/dL (8.5-10.5); Carbon Dioxide 24 mmol/L (22-29); Chloride 88 mmol/L (98-107); Glucose 125 mg/dL (65-115); Osmolality Calculated 264 mOsm/kg (285-295); Potassium 3.8 mmol/L (3.5-5.1); Sodium 124 mmol/L (136-145)
[2024-07-03] MEDS: sodium chloride 1 gm Tablet PO (20:07)
[2024-07-03 20:35] LABS: Glucose Point of Care 95 mg/dL (70-110)
[2024-07-03] MEDS: acetaminophen 500 mg Tablet PO (20:55)
[2024-07-03 21:24] LABS: Anion Gap 17.5 (5-19); Blood Urea Nitrogen 25 mg/dL (8-23); Calcium 8.7 mg/dL (8.5-10.5); Carbon Dioxide 23 mmol/L (22-29); Chloride 87 mmol/L (98-107); Creatinine Clr Calc Pharmacy 24.8625; Glucose 101 mg/dL (65-115); Osmolality Calculated 263 mOsm/kg (285-295); Potassium 3.5 mmol/L (3.5-5.1); Sodium 124 mmol/L (136-145)
--- NOTE | 2024-07-03 21:58 | PC.NURSE ---
Dr. Lira ordered to stop 3% sodium chloride at 8 PM. Ordered to draw BMP at 9 PM and call him with the results. Dr. Lira notified at this time of the BMP results. Ordered to start the 3% sodium chloride back again at 50 ml/hr and run it for 3 hours. Ordered to change midnight BMP to be drawn at 2 AM. Lab notified of this.
[2024-07-04] VITALS (10 sets, daily range): BP systolic 117–174; BP diastolic 50–78; PULSE 63–98; RESP 15–17; TEMP 36.3–36.9; O2SAT 90–96
[2024-07-04] MEDS: TRAMadol 50 mg Tablet 100 MG PO ×3 (01:05→16:56)
[2024-07-04 03:06] LABS: Anion Gap 16.5 (5-19); Blood Urea Nitrogen 26 mg/dL (8-23); Calcium 8.5 mg/dL (8.5-10.5); Carbon Dioxide 22 mmol/L (22-29); Chloride 91 mmol/L (98-107); Creatinine Clr Calc Pharmacy 24.8625; Glucose 90 mg/dL (65-115); Osmolality Calculated 266 mOsm/kg (285-295); Potassium 3.5 mmol/L (3.5-5.1); Sodium 126 mmol/L (136-145)
[2024-07-04] MEDS: ipratropium-albuterol 3 mL Neb INHALATION (03:48)
--- NOTE | 2024-07-04 04:20 | PC.NURSE ---
Called Doctor. Lira with 2 am labs * sodium 126. No new orders received, he will follow up with orders.
[2024-07-04 06:56] LABS: Basophils # 0.1 10^3/uL (0.0-0.1); Basophils % 0.8 %; Eosinophils # 0.1 10^3/uL (0.0-0.8); Eosinophils % 1.2 %; Hematocrit 32.8 % (36-47); Lymphocytes # 1.3 10^3/uL (0.8-4.8); Lymphocytes % 12.4 %; Mean Corpuscular HGB Conc 32.9 g/dL (30-55); Mean Corpuscular Hemoglobin 28.3 pg (27-33); Mean Corpuscular Volume 85.9 fl (85-98); Monocytes # 1.4 10^3/uL (0.2-0.9); Monocytes % 13.3 %; Neutrophils # 6.71 10^3/uL (1.8-7.7); Neutrophils % 65.2 %; Nucleated Red Blood Cells % 0 %; Platelet Count 490 10^3/cmm (157-399); Red Blood Count 3.82 10^6/uL (3.85-5.65); Red Cell Distribution Width 14.1 % (12.1-15.1); White Blood Count 10.28 10^3/uL (3.29-11.43)
[2024-07-04 07:11] LABS: Anion Gap 15.7 (5-19); Blood Urea Nitrogen 25 mg/dL (8-23); Calcium 8.7 mg/dL (8.5-10.5); Carbon Dioxide 24 mmol/L (22-29); Chloride 92 mmol/L (98-107); Creatinine Clr Calc Pharmacy 27.5673; Glucose 81 mg/dL (65-115); Magnesium 1.8 mg/dL (1.7-2.3); Osmolality Calculated 269 mOsm/kg (285-295); Potassium 3.7 mmol/L (3.5-5.1); Sodium 128 mmol/L (136-145)
--- NOTE | 2024-07-04 08:27 | P.PN_ITS ---
Subjective 2 Subjective: The patient was seen and examined. She is more awake and alert. She is starting to eat nitrogen well. She complains of leg cramps. Has also nausea. No vomiting no headaches or diarrhea. Medications: Reviewed: Yes Medication Review Details: Current Medications Acetaminophen (Acetaminophen 500 Mg Tablet) 500 mg PO Q4H PRN PRN Reason: fever Last Admin: 07/03/24 20:55 Dose: 500 mg Albuterol/Ipratropium (Ipratropium-Albuterol 3 Ml Neb) 3 ml INHALATION Q6H PRN PRN Reason: SHORTNESS OF BREATH Last Admin: 07/04/24 03:48 Dose: 3 ml Amlodipine Besylate (Amlodipine 10 Mg Tablet) 10 mg PO DAILY [facility] Last Admin: 07/03/24 08:24 Dose: 10 mg Glucagon (Glucagon 1 Mg/Ml Kit 1 Ml) 1 mg IM ONCE PRN; Protocol PRN Reason: Adult Acute Hypoglycemia Nursing Prot. Heparin Sodium (Porcine) (Heparin 5,000 Unit/Ml Inj 1 Ml) 5,000 unit SUBCUT Q12H [facility] Hydralazine HCl (Hydralazine 20 Mg/Ml Inj 1 Ml) 10 mg IVP Q4H PRN PRN Reason: bp>180/90 Dextrose (D5w) 500 mls @ 0 mls/hr IV ONCE PRN; Protocol PRN Reason: Adult Acute Hypoglycemia Prot Dextrose (D10w) 125 mls @ 750 mls/hr IV PRN PRN; Protocol PRN Reason: Adult Acute Hypoglycemia Nursing Protocol Dextrose (D10w) 250 mls @ 1,000 mls/hr IV PRN PRN; Protocol PRN Reason: Adult Acute Hypoglycemia Nursing Protocol Sodium Chloride (Sodium Chloride 0.9%) 1,000 mls @ 100 mls/hr IV .Q10H [facility] Last Admin: 07/03/24 02:30 Dose: 100 mls/hr Insulin Human Lispro (Insulin Lispro 100 Unit/1 Ml) 0 unit SUBCUT WM&BEDTIME [facility]; Protocol Last Admin: 07/04/24 07:28 Dose: Not Given Levothyroxine Sodium (Levothyroxine 50 Mcg Tablet) 50 mcg PO DAILY [facility] Last Admin: 07/03/24 08:24 Dose: 50 mcg Metoprolol Tartrate (Metoprolol Tartrate 50 Mg Tablet) 50 mg PO BID [facility] Last Admin: 07/03/24 18:01 Dose: 50 mg Ondansetron HCl (Ondansetron 2 Mg/Ml Sdv 2 Ml) 4 mg IVP Q6H PRN PRN Reason: NAUSEA AND VOMITING Prednisone (Prednisone 10 Mg Tablet) 10 mg PO DAILY [facility] Last Admin: 07/03/24 08:24 Dose: 10 mg Sodium Chloride (Sodium Chloride 1 Gm Tablet) 1 gm PO BID [facility] Last Admin: 07/03/24 20:07 Dose: 1 gm Tramadol HCl (Tramadol 50 Mg Tablet) 100 mg PO Q8H [facility] Last Admin: 07/04/24 01:05 Dose: 100 mg Vitals/I&O/Wt Last Vital Signs Temp 98.0 F 07/04/24 07:41 Pulse 75 07/04/24 07:41 Resp 17 07/04/24 07:41 BP 174/76 07/04/24 07:41 Pulse Ox 92 07/04/24 07:41 O2 Del Method Room Air 07/04/24 07:41 07/03/24 07/04/24 07/04/24 22:59 06:59 14:59 Intake Total 581.667 / 701.667 148.333 / 850.000 Balance 581.667 / 401.667 148.333 / 550.000 Weight last 48 hrs Weight 44.906 kg Weight 40.5 kg Weight 41 kg Weight 39.009 kg Physical Exam 2 Narrative: Elderly lady in bed, no apparent distress. Awake and alert more oriented. Interactive. Vital signs noted. HEENT normocephalic atraumatic Neck is supple Lungs -good air movement bilaterally Heart regular Abdomen is soft positive bowel sounds. Extremities no edema. Neuro awake and interactive, oriented times 2+ Data 07/04/24 06:42 07/04/24 06:42 A&P Assessment and plan (1) Hyponatremia: 89-year-old lady with hypertension on thiazide depression on Lexapro chronic pain on tramadol and hypothyroidism on levothyroxine. 1. Hyponatremia -likely from diuretics and escitalopram. Please note the patient is urine sodium was elevated which can be due to her thiazide, or from her SSRI, escitalopram. The patient was also on a low protein low salt diet. The patient's sodium has improved from 118-128. She received some 3% saline overnight. She also received normal saline. -Continue to hold Lexapro and thiazide.. Will replace potassium. 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 -She has a normal TSH level, on levothyroxine as patient has hypothyroidism. -Continue free water restrict the patient -Will monitor serum chemistries twice daily. -d/c sodium chloride tablets- as she has htn. Will give a dose of urea. 2. KRISTEN from prerenal azotemia creatinine improved from 1.2 to 1.0 mg off of thiazides and with IV fluids. 3. Hypertension avoid thiazide diuretics. She is currently on amlodipine, metoprolol add hydralazine 25 mg po tid. -Follow-up renal artery duplex. However given advanced age would recommend treating medically as her creatinine is 1.0. 4. Mild anemia of 10.8 hemoglobin. Hemoglobin likely dropping with IV fluids she was likely depleted. 5. The patient has leg cramping try to potassium at 4 and magnesium at 2. Consider gabapentin however I am concerned it may affect affect her mental status. Once patient is stable with a sodium over 130 hopefully can discharge with outpatient follow-up. The patient was seen examined using audiovisual equipment with the aid of a nurse. The patient and her family consented to telehealth. Will monitor her labs along with you. Plan See above - monitor labs PDMP PDMP Reviewed: Not Reviewed Attestations 2 Medical Necessity Statement*: per medicine. hyponatremia Time Spent in Patient Care: Greater than 35 minutes Coding Level of Care Code Acute Code for [facility] Diagnoses Hyponatremia E87.1
--- NOTE | 2024-07-04 09:15 | PC.SOCIAL ---
IMM Update Pg. 2 of IMM updated; copy provided at bedside.
[2024-07-04] MEDS: metoprolol tartrate 50 mg Tablet PO ×2 (09:26→16:57)
[2024-07-04] MEDS: heparin 5,000 unit/mL INJ 1 mL 5000 UNIT SUBCUT ×2 (09:26→20:07)
[2024-07-04] MEDS: amlodipine 10 mg Tablet PO (09:26)
[2024-07-04] MEDS: levothyroxine 50 mcg Tablet PO (09:26)
[2024-07-04] MEDS: potassium chloride ER 20 mEq Tablet PO (09:26)
[2024-07-04] MEDS: magnesium oxide 400 mg tablet PO (09:26)
[2024-07-04] MEDS: predniSONE 10 mg Tablet PO (09:26)
[2024-07-04 10:52] LABS: Glucose Point of Care 79 mg/dL (70-110)
[2024-07-04 12:10] LABS: Blood Urea Nitrogen 24 mg/dL (8-23); Calcium 8.6 mg/dL (8.5-10.5); Carbon Dioxide 23 mmol/L (22-29); Chloride 89 mmol/L (98-107); Creatinine Clr Calc Pharmacy 30.6303; Glucose 113 mg/dL (65-115); Osmolality Calculated 265 mOsm/kg (285-295); Sodium 125 mmol/L (136-145)
--- NOTE | 2024-07-04 14:04 | P.PN_ITS ---
Subjective 2 Subjective: seen this am sodium 128, urea started pt appetite has improved Vitals/I&O/Wt Last Vital Signs Temp 98.0 F 07/04/24 11:19 Pulse 75 07/04/24 11:19 Resp 17 07/04/24 11:19 BP 144/78 07/04/24 11:19 Pulse Ox 96 07/04/24 11:19 O2 Del Method Nasal Cannula 07/04/24 11:19 O2 Flow Rate 2.5 07/04/24 11:19 07/03/24 07/04/24 07/04/24 22:59 06:59 14:59 Intake Total 581.667 / 701.667 148.333 / 850.000 360 / 360 Balance 581.667 / 401.667 148.333 / 550.000 360 / 360 Weight last 48 hrs Weight 44.906 kg Weight 40.5 kg Weight 41 kg Physical Exam 2 Narrative: AOx3, family at bedside Hypertensive Currently on room air GCS 15 Nonfocal neuroexam Hard of hearing Pleasant and very cooperative No sign of focal deficit or seizure No sign of lower extremity edema Sarcopenia S1, S2 Data 07/04/24 06:42 07/04/24 11:46 A&P Assessment and plan (1) Hyponatremia: (2) KRISTEN (acute kidney injury): Plan Hypovolemic hyponatremia Requested TSH uric acid along urine and serum osmolarity, urine sodium IV fluids did improve her sodium from 1 18-122: IV fluids on hold As per nephro she was put on fluid restriction Discontinue hydrochlorothiazide and losartan Patient endorsing poor p.o. intake Frequent sodium check every 4 hours Goal sodium correction 6 mEq in 24 hours KRISTEN: Anticipate improvement with IV fluids discontinue combination of losartan and hydrochlorothiazide Sweeney catheter in place Hypertension: Will need to adjust her antihypertensive medication continue regimen I will continue metoprolol, add amlodipine Avoid losartan and hydrochlorothiazide Full code Regular diet with fluid restriction DVT prophylaxis: Heparin Family not at the bedside: Will touch base with PCP to get more records about her past medical history 07/03/2024 continue bmp q4h Will monitor normal saline and off of Lexapro and hydrochlorothiazide. We may need to give 2% saline if sodium remains low. Will replace potassium. 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 -She has a normal TSH level, on levothyroxine as patient has hypothyroidism. -Continue free water restrict the patient -Will monitor serum chemistries every 6 hours. For now continue with normal saline. If serum sodium drops or if she becomes more confused she may need hypertonic saline. will transfer to floor today appreciate recommendations from nephrology 07/04/2024 continue bmp q4h continue urea once sodium > 130, will consider dc home appreciate nephro recs check pt/ot continue to hold lexapro, HCTZ PDMP PDMP Reviewed: Not Reviewed Attestations 2 Medical Necessity Statement*: hyponatremia Diagnoses Hyponatremia E87.1 KRISTEN (acute kidney injury) N17.9
[2024-07-04 16:41] LABS: Glucose Point of Care 106 mg/dL (70-110)
[2024-07-04 19:10] LABS: Blood Urea Nitrogen 25 mg/dL (8-23); Calcium 8.3 mg/dL (8.5-10.5); Carbon Dioxide 23 mmol/L (22-29); Chloride 88 mmol/L (98-107); Creatinine Clr Calc Pharmacy 27.5673; Glucose 105 mg/dL (65-115); Osmolality Calculated 263 mOsm/kg (285-295); Sodium 124 mmol/L (136-145)
[2024-07-04] MEDS: TRAMadol 50 mg Tablet PO (20:07)
[2024-07-04 20:34] LABS: Glucose Point of Care 101 mg/dL (70-110)
[2024-07-05] VITALS (10 sets, daily range): BP systolic 102–142; BP diastolic 55–68; PULSE 63–83; RESP 15–20; TEMP 36.3–37.5; O2SAT 85–99
[2024-07-05] MEDS: TRAMadol 50 mg Tablet PO ×5 (01:00→20:49)
[2024-07-05 04:43] LABS: Basophils # 0.1 10^3/uL (0.0-0.1); Basophils % 0.8 %; Eosinophils # 0.1 10^3/uL (0.0-0.8); Eosinophils % 0.5 %; Lymphocytes # 1.7 10^3/uL (0.8-4.8); Lymphocytes % 10.3 %; Mean Corpuscular HGB Conc 32.8 g/dL (30-55); Mean Corpuscular Hemoglobin 28.4 pg (27-33); Mean Corpuscular Volume 86.5 fl (85-98); Mean Platelet Volume 9.1 fL (7.4-10.4); Monocytes # 1.4 10^3/uL (0.2-0.9); Monocytes % 8.8 %; Neutrophils # 11.84 10^3/uL (1.8-7.7); Neutrophils % 73.1 %; Nucleated Red Blood Cells % 0 %; Platelet Count 487 10^3/cmm (157-399); White Blood Count 16.19 10^3/uL (3.29-11.43)
[2024-07-05 05:23] LABS: Slide Review Slide Review Perform
[2024-07-05 05:37] LABS: Anion Gap 16.9 (5-19); Blood Urea Nitrogen 24 mg/dL (8-23); Calcium 8.5 mg/dL (8.5-10.5); Carbon Dioxide 23 mmol/L (22-29); Chloride 87 mmol/L (98-107); Creatinine Clr Calc Pharmacy 24.4534; Glucose 114 mg/dL (65-115); Osmolality Calculated 261 mOsm/kg (285-295); Potassium 3.9 mmol/L (3.5-5.1); Sodium 123 mmol/L (136-145)
[2024-07-05] MEDS: urea 15 gm Powder PO (06:25)
[2024-07-05 06:26] LABS: Glucose Point of Care 97 mg/dL (70-110)
--- NOTE | 2024-07-05 06:30 | PC.NURSE ---
Addendum entered by Leanna Reza RN 07/05/24 06:50: Dr. Alicia notified of both. Original Note: Urea order was at bottom of mar and did not pop up as due/to be administered. Ordered edited from [facility] to ONE and was then showing at top of mar to be given. Urea originally ordered yesterday, but was not administered until at this time because it did not flow over to mar correctly. Patient placed on 2 liters nasal cannula due to oxygen saturation of 84 percent. Patient took nasal cannula off. Patient currently alert and oriented, but refusing to wear oxygen/nasal cannula, stating that it is uncomfortable to wear. Patient educated that it is unsafe for her oxygen to be that low. Patient states oh, it'll come up here in a little bit.
[2024-07-05 09:15] LABS: Alanine Aminotransferase 10 U/L (0-33); Albumin Level 3.2 g/dL (3.5-5.2); Alkaline Phosphatase 87 U/L (35-105); Anion Gap 15.9 (5-19); Aspartate Amino Transferase 21 U/L (0-32); Blood Urea Nitrogen 48 mg/dL (8-23); Calcium 8.7 mg/dL (8.5-10.5); Carbon Dioxide 24 mmol/L (22-29); Chloride 85 mmol/L (98-107); Creatinine Clr Calc Pharmacy 22.4156; Globulin 3.5 g/dL (1.3-4.6); Glucose 124 mg/dL (65-115); Osmolality Calculated 266 mOsm/kg (285-295); Potassium 3.9 mmol/L (3.5-5.1); Sodium 121 mmol/L (136-145); Total Bilirubin 0.6 mg/dL (0.15-1.2); Total Protein 6.7 g/dL (6.6-8.7)
[2024-07-05] MEDS: levothyroxine 50 mcg Tablet PO (09:30)
[2024-07-05] MEDS: heparin 5,000 unit/mL INJ 1 mL 5000 UNIT SUBCUT ×2 (09:30→20:49)
[2024-07-05] MEDS: magnesium oxide 400 mg tablet PO (09:30)
[2024-07-05] MEDS: predniSONE 10 mg Tablet PO (09:31)
--- NOTE | 2024-07-05 09:44 | CTR_ITS ---
PROCEDURE INFORMATION: Exam: CT Chest Without Contrast; Diagnostic Exam date and time: 07/05/2024 10:43 AM Age: 89 years old Clinical indication: Shortness of breath; Additional info: Hypoxia TECHNIQUE: Imaging protocol: Diagnostic computed tomography of the chest without contrast. Radiation optimization: All CT scans at this facility use at least one of these dose optimization techniques: automated exposure control; mA and/or kV adjustment per patient size (includes targeted exams where dose is matched to clinical indication); or iterative reconstruction. COMPARISON: CR XR chest 1V portable [id number] 07/02/2024 2:44 PM RADIATION DOSE METRICS: Total DLP (mGy-cm): 220.13 FINDINGS: Lungs: Bilateral apical fibrotic changes. Calcified granulomas in the left lung. Mild centrilobular emphysematous changes are present. Bilateral patchy apical fibrotic changes. Tree-in-bud infiltrates in the right upper lobe, and patchy ground-glass infiltrates as well as tree-in-bud infiltrates in bilateral lower lobes, lingula and right middle lobe. Scattered mild bronchiectatic changes. Pleural spaces: Left pleural calcifications. No pleural effusion Heart: Unremarkable. No cardiomegaly. No pericardial effusion. Coronary arteries: There is mild atherosclerotic calcification of the coronary arteries. Lymph nodes: Calcified left hilar lymph nodes. Vasculature: Calcified atheromas of the visualized arteries. Diaphragm: A small hiatal hernia is present. Spleen: There are multiple calcified granulomas of the spleen. Bones/joints: Demineralization of the visualized bones, limiting sensitivity for nondisplaced fractures. The thoracic spine demonstrates mild degenerative changes at multiple levels. Mild curvature of the lower thoracic spine convex to the right. Soft tissues: Unremarkable. CT/CT chest wo con [id number] IMPRESSION: Multilobar pneumonia.
[2024-07-05 11:13] LABS: Glucose Point of Care 108 mg/dL (70-110)
[2024-07-05] MEDS: AZITHROMYCIN ADD-Vantage 500 MG in 0.9% NaCl ADD-Vantage 250 ML 250 MG IV (11:30)
[2024-07-05] MEDS: cefTRIAXone 1,000 mg SDV 1000 MG IVP (11:30)
[2024-07-05] MEDS: ipratropium-albuterol 3 mL Neb INHALATION (13:10)
--- NOTE | 2024-07-05 13:40 | P.PN_ITS ---
Subjective 2 Subjective: Requiring 2 L nasal cannula at this time however patient refuses to wear oxygen. After explained to her the need for it she states she will wear it. Saturation 88 to 89% on room air. CT chest done this morning shows multilobar pneumonia. Sodium 121 this morning. There was an issue with administering urea dose overnight therefore it was not given. It was given grooving lathe tender today. Sodium 121 this morning. Repeat sodium pending Family present at bedside. WBC count 16,000 this morning. Vitals/I&O/Wt Last Vital Signs Temp 99.5 F 07/05/24 11:17 Pulse 72 07/05/24 13:23 Resp 16 07/05/24 13:23 BP 142/68 07/05/24 11:17 Pulse Ox 92 07/05/24 13:23 O2 Del Method Oxymask 07/05/24 13:23 O2 Flow Rate 4 07/05/24 13:23 07/04/24 07/05/24 07/05/24 22:59 06:59 14:59 Intake Total 240 / 600 720 / 1320 240 / 240 Balance 240 / 600 720 / 1320 240 / 240 Weight last 48 hrs Weight 43.817 kg Weight 44.906 kg Physical Exam 2 Narrative: AOx3, family at bedside Hypertensive Currently on room air GCS 15 Nonfocal neuroexam Hard of hearing Pleasant and very cooperative No sign of focal deficit or seizure No sign of lower extremity edema Sarcopenia S1, S2 Data 07/05/24 04:01 07/05/24 08:53 A&P Assessment and plan (1) Hyponatremia: (2) Multifocal pneumonia: (3) KRISTEN (acute kidney injury): (4) Supplemental oxygen dependent: (5) Coughing: (6) RSV bronchiolitis: (7) Leukocytosis: Plan Hypovolemic hyponatremia Requested TSH uric acid along urine and serum osmolarity, urine sodium IV fluids did improve her sodium from 1 18-122: IV fluids on hold As per nephro she was put on fluid restriction Discontinue hydrochlorothiazide and losartan Patient endorsing poor p.o. intake Frequent sodium check every 4 hours Goal sodium correction 6 mEq in 24 hours KRISTEN: Anticipate improvement with IV fluids discontinue combination of losartan and hydrochlorothiazide Sweeney catheter in place Hypertension: Will need to adjust her antihypertensive medication continue regimen I will continue metoprolol, add amlodipine Avoid losartan and hydrochlorothiazide Full code Regular diet with fluid restriction DVT prophylaxis: Heparin Family not at the bedside: Will touch base with PCP to get more records about her past medical history 07/03/2024 continue bmp q4h Will monitor normal saline and off of Lexapro and hydrochlorothiazide. We may need to give 2% saline if sodium remains low. Will replace potassium. 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 -She has a normal TSH level, on levothyroxine as patient has hypothyroidism. -Continue free water restrict the patient -Will monitor serum chemistries every 6 hours. For now continue with normal saline. If serum sodium drops or if she becomes more confused she may need hypertonic saline. will transfer to floor today appreciate recommendations from nephrology 07/04/2024 continue bmp q4h continue urea once sodium > 130, will consider dc home appreciate nephro recs check pt/ot continue to hold lexapro, HCTZ 07/05/2024 Multilobar pneumonia Supplemental oxygen dependent requiring 2 L nasal cannula. Check bacterial antigen and Streptococcus Legionella. High suspicion of Legionella as patient is hyponatremic. Must be ruled out. Will continue on ceftriaxone azithromycin. ? Hyponatremia generally most likely secondary to Lexapro use. Continue to hold. Continue to hold losartan hydrochlorothiazide. ? Continue amlodipine at this time for hypertension. ? Check sputum culture Gram stain ? CT chest does show evidence of multilobar pneumonia. ? Sodium 121 this morning. Patient did get 4 urea 15 g one-time dose this morning. Continue to check sodium every 4 hours. ? Nephrology following. Appreciate recommendations. Patient will likely need to be discharged on urea when she is medically optimized to go home. She will also likely require oxygen at time of discharge. Continue to provide supportive care otherwise. DuoNeb every 6 hours as needed. PDMP PDMP Reviewed: Not Reviewed Attestations 2 Medical Necessity Statement*: Multilobar pneumonia, hyponatremia requiring continued hospitalization for IV antibiotics, close sodium monitoring and management. Diagnoses Hyponatremia E87.1 Multifocal pneumonia J18.9 KRISTEN (acute kidney injury) N17.9 Supplemental oxygen dependent Z99.81 Coughing R05.9 RSV bronchiolitis J21.0 Leukocytosis D72.829
[2024-07-05 16:41] LABS: Glucose Point of Care 126 mg/dL (70-110)
[2024-07-05] MEDS: metoprolol tartrate 50 mg Tablet PO (18:09)
[2024-07-05 18:14] LABS: Alanine Aminotransferase 12 U/L (0-33); Albumin Level 3.2 g/dL (3.5-5.2); Alkaline Phosphatase 82 U/L (35-105); Anion Gap 15.2 (5-19); Aspartate Amino Transferase 20 U/L (0-32); Blood Urea Nitrogen 38 mg/dL (8-23); Calcium 8.7 mg/dL (8.5-10.5); Carbon Dioxide 24 mmol/L (22-29); Chloride 84 mmol/L (98-107); Creatinine Clr Calc Pharmacy 26.8988; Globulin 3.2 g/dL (1.3-4.6); Glucose 174 mg/dL (65-115); Osmolality Calculated 261 mOsm/kg (285-295); Potassium 4.2 mmol/L (3.5-5.1); Total Bilirubin 0.4 mg/dL (0.15-1.2); Total Protein 6.4 g/dL (6.6-8.7)
[2024-07-05 18:20] LABS: Sodium 119 mmol/L (136-145)
--- NOTE | 2024-07-05 18:39 | PM.PN ---
Subjective Subjective: no new complaints Medications: Reviewed: Yes Vitals/I&O/Wt Last Vital Signs Temp 97.6 F 07/05/24 16:00 Pulse 83 07/05/24 16:00 Resp 16 07/05/24 13:23 BP 131/62 07/05/24 16:00 Pulse Ox 94 07/05/24 16:00 O2 Del Method Aerosol Mask 07/05/24 16:00 O2 Flow Rate 4 07/05/24 13:23 07/05/24 07/05/24 07/05/24 06:59 14:59 22:59 Intake Total 720 / 1320 490 / 490 Balance 720 / 1320 490 / 490 Weight last 48 hrs Weight 43.817 kg Weight 44.906 kg Physical Exam Narrative: AOx3, family at bedside Hypertensive Currently on room air GCS 15 Nonfocal neuroexam Hard of hearing Pleasant and very cooperative No sign of focal deficit or seizure No sign of lower extremity edema Sarcopenia S1, S2 Data 07/05/24 04:01 07/05/24 17:49 Micro: Microbiology 07/05/24 17:51 Blood Culture - Preliminary Blood SPECIMEN COLLECTED 07/05/24 17:49 Blood Culture - Preliminary Blood SPECIMEN COLLECTED A&P Assessment and plan (1) Hyponatremia: 89-year-old lady with hypertension on thiazide depression on Lexapro chronic pain on tramadol and hypothyroidism on levothyroxine. 1. Hyponatremia -likely from diuretics and escitalopram. Please note the patient is urine sodium was elevated which can be due to her thiazide, or from her SSRI, escitalopram. The patient was also on a low protein low salt diet. The patient's sodium has improved from 118-128. She received some 3% saline . She also received normal saline. -Continue to hold Lexapro and thiazide.. Will replace potassium. 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 -She has a normal TSH level, on levothyroxine as patient has hypothyroidism. -Continue free water restriction, added urea tabs, also will give a dose of salt tablet today, BMP every 4 hours and asked RN to call me sodium levels 2. KRISTEN from prerenal azotemia creatinine improved from 1.2 to 1.0 mg off of thiazides and with IV fluids. 3. Hypertension avoid thiazide diuretics. She is currently on amlodipine, metoprolol add hydralazine 25 mg po tid. -Follow-up renal artery duplex. However given advanced age would recommend treating medically as her creatinine is 1.0. 4. Mild anemia of 10.8 hemoglobin. Hemoglobin likely dropping with IV fluids she was likely depleted. 5. The patient has leg cramping try to potassium at 4 and magnesium at 2. Consider gabapentin however I am concerned it may affect affect her mental status. Once patient is stable with a sodium over 130 hopefully can discharge with outpatient follow-up. The patient was seen examined using audiovisual equipment with the aid of a nurse. The patient and her family consented to telehealth. Will monitor her labs along with you. Plan See above - monitor labs PDMP PDMP Reviewed: Not Reviewed Attestations Medical Necessity Statement*: per Coding Level of Care Code Acute Code for [facility] Fwd Diagnoses Hyponatremia E87.1
[2024-07-05] MEDS: FUROsemide 10 mg/mL SDV 2mL 20 MG IVP (19:24)
[2024-07-05] MEDS: albumin 25 G/100 ML BAG 60 G IV (19:51)
[2024-07-05 20:42] LABS: Glucose Point of Care 119 mg/dL (70-110)
[2024-07-05 21:47] LABS: Alanine Aminotransferase 12 U/L (0-33); Albumin Level 3.7 g/dL (3.5-5.2); Alkaline Phosphatase 112 U/L (35-105); Anion Gap 16.7 (5-19); Aspartate Amino Transferase 26 U/L (0-32); Blood Urea Nitrogen 40 mg/dL (8-23); Calcium 8.4 mg/dL (8.5-10.5); Carbon Dioxide 26 mmol/L (22-29); Chloride 85 mmol/L (98-107); Creatinine Clr Calc Pharmacy 22.4156; Glucose 120 mg/dL (65-115); Osmolality Calculated 267 mOsm/kg (285-295); Potassium 4.7 mmol/L (3.5-5.1); Sodium 123 mmol/L (136-145); Total Bilirubin 0.5 mg/dL (0.15-1.2); Total Protein 6.7 g/dL (6.6-8.7)
[2024-07-06] VITALS (10 sets, daily range): BP systolic 105–122; BP diastolic 40–61; PULSE 67–84; RESP 14–18; TEMP 36.3–36.6; O2SAT 89–98
[2024-07-06] MEDS: TRAMadol 50 mg Tablet PO ×6 (01:30→20:17)
[2024-07-06 02:39] LABS: Basophils # 0.1 10^3/uL (0.0-0.1); Basophils % 0.6 %; Eosinophils % 0.2 %; Hematocrit 29.8 % (36-47); Lymphocytes # 1.6 10^3/uL (0.8-4.8); Mean Corpuscular HGB Conc 33.2 g/dL (30-55); Mean Corpuscular Hemoglobin 28.5 pg (27-33); Mean Corpuscular Volume 85.9 fl (85-98); Mean Platelet Volume 8.9 fL (7.4-10.4); Monocytes # 1.2 10^3/uL (0.2-0.9); Neutrophils # 15.48 10^3/uL (1.8-7.7); Neutrophils % 80.4 %; Nucleated Red Blood Cells % 0 %; Platelet Count 384 10^3/cmm (157-399); Red Blood Count 3.47 10^6/uL (3.85-5.65); Red Cell Distribution Width 13.9 % (12.1-15.1); White Blood Count 19.27 10^3/uL (3.29-11.43)
[2024-07-06 02:54] LABS: Anion Gap 14.6 (5-19); Blood Urea Nitrogen 37 mg/dL (8-23); Calcium 8.5 mg/dL (8.5-10.5); Carbon Dioxide 29 mmol/L (22-29); Chloride 87 mmol/L (98-107); Creatinine Clr Calc Pharmacy 24.4534; Glucose 94 mg/dL (65-115); Osmolality Calculated 270 mOsm/kg (285-295); Potassium 4.6 mmol/L (3.5-5.1); Sodium 126 mmol/L (136-145)
[2024-07-06 03:02] LABS: Magnesium 1.7 mg/dL (1.7-2.3); Phosphorus 1.7 mg/dL (2.5-4.5)
[2024-07-06] MEDS: albumin 25 G/100 ML BAG 60 G IV ×3 (04:24→20:17)
[2024-07-06 06:42] LABS: Anion Gap 13.7 (5-19); Blood Urea Nitrogen 34 mg/dL (8-23); Calcium 8.6 mg/dL (8.5-10.5); Carbon Dioxide 28 mmol/L (22-29); Chloride 89 mmol/L (98-107); Creatinine Clr Calc Pharmacy 27.0381; Glucose 90 mg/dL (65-115); Osmolality Calculated 271 mOsm/kg (285-295); Potassium 3.7 mmol/L (3.5-5.1); Sodium 127 mmol/L (136-145)
[2024-07-06 06:50] LABS: Glucose Point of Care 95 mg/dL (70-110)
[2024-07-06] MEDS: sodium chloride 1 gm Tablet PO (08:11)
[2024-07-06] MEDS: magnesium oxide 400 mg tablet PO (08:11)
[2024-07-06] MEDS: levothyroxine 50 mcg Tablet PO (08:11)
[2024-07-06] MEDS: heparin 5,000 unit/mL INJ 1 mL 5000 UNIT SUBCUT ×2 (08:11→20:17)
[2024-07-06] MEDS: predniSONE 10 mg Tablet PO (08:11)
[2024-07-06] MEDS: amlodipine 10 mg Tablet PO (08:12)
[2024-07-06 09:24] LABS: Alanine Aminotransferase 10 U/L (0-33); Albumin Level 3.8 g/dL (3.5-5.2); Alkaline Phosphatase 64 U/L (35-105); Anion Gap 14.8 (5-19); Aspartate Amino Transferase 16 U/L (0-32); Blood Urea Nitrogen 31 mg/dL (8-23); Calcium 8.8 mg/dL (8.5-10.5); Carbon Dioxide 28 mmol/L (22-29); Chloride 89 mmol/L (98-107); Creatinine Clr Calc Pharmacy 27.0381; Globulin 2.6 g/dL (1.3-4.6); Glucose 75 mg/dL (65-115); Osmolality Calculated 271 mOsm/kg (285-295); Potassium 3.8 mmol/L (3.5-5.1); Sodium 128 mmol/L (136-145); Total Bilirubin 0.6 mg/dL (0.15-1.2); Total Protein 6.4 g/dL (6.6-8.7)
[2024-07-06] MEDS: urea 15 gm Powder PO ×2 (10:07→17:01)
[2024-07-06] MEDS: VANCOMYCIN ADD-Vantage 750 MG in 0.9% NaCl ADD-Vantage 250 ML 250 MG IV (10:47)
[2024-07-06 11:14] LABS: Glucose Point of Care 125 mg/dL (70-110)
[2024-07-06] MEDS: ipratropium-albuterol 3 mL Neb INHALATION (11:27)
--- NOTE | 2024-07-06 12:45 | P.PN_ITS ---
Subjective 2 Subjective: no new c/o Medications: Reviewed: Yes Vitals/I&O/Wt Last Vital Signs Temp 97.5 F L 07/06/24 11:46 Pulse 77 07/06/24 11:46 Resp 16 07/06/24 11:46 BP 112/45 07/06/24 11:46 Pulse Ox 96 07/06/24 11:46 O2 Del Method Oxymask 07/06/24 11:46 O2 Flow Rate 2 07/05/24 20:00 07/05/24 07/06/24 07/06/24 22:59 06:59 14:59 Intake Total 100 / 590 100 / 690 970 / 970 Output Total 250 / 250 600 / 850 Balance -150 / 340 -500 / -160 970 / 970 Weight last 48 hrs Weight 44.044 kg Weight 43.817 kg Physical Exam 2 Narrative: Awake , alert , family at bedside Hypertensive Currently on room air GCS 15 Nonfocal neuroexam Hard of hearing Pleasant and very cooperative No sign of focal deficit or seizure No sign of lower extremity edema Sarcopenia S1, S2 Data 07/07/24 04:37 07/07/24 04:37 Micro: Microbiology 07/05/24 20:55 Bacterial Antigens - Final Urine,Voided 07/05/24 20:55 Legionella Urinary Antigen - Final Urine,Voided 07/05/24 17:51 Blood Culture - Preliminary Blood SPECIMEN COLLECTED 07/05/24 17:49 Blood Culture - Preliminary Blood SPECIMEN COLLECTED A&P Assessment and plan (1) Hyponatremia: 89-year-old lady with hypertension on thiazide depression on Lexapro chronic pain on tramadol and hypothyroidism on levothyroxine. 1. Hyponatremia -likely from diuretics and escitalopram. Please note the patient is urine sodium was elevated which can be due to her thiazide, or from her SSRI, escitalopram. The patient was also on a low protein low salt diet. The patient's sodium has improved from 118-128. She received some 3% saline . She also received normal saline. -Continue to hold Lexapro and thiazide.. Will replace potassium. 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 -She has a normal TSH level, on levothyroxine as patient has hypothyroidism. -Continue free water restriction, added urea tabs, decrease salt tabs to once daily , change BMP to BID Na 128 today 2. KRISTEN from prerenal azotemia creatinine improved from 1.2 to 1.0 mg off of thiazides and with IV fluids. 3. Hypertension avoid thiazide diuretics. She is currently on amlodipine, metoprolol add hydralazine 25 mg po tid. -Follow-up renal artery duplex. However given advanced age would recommend treating medically as her creatinine is 1.0. 4. Mild anemia of 10.8 hemoglobin. Hemoglobin likely dropping with IV fluids she was likely depleted. 5. The patient has leg cramping try to potassium at 4 and magnesium at 2. Consider gabapentin however I am concerned it may affect affect her mental status. Once patient is stable with a sodium over 130 hopefully can discharge with outpatient follow-up. The patient was seen examined using audiovisual equipment with the aid of a nurse. The patient and her family consented to telehealth. Will monitor her labs along with you. Plan See above - monitor labs PDMP PDMP Reviewed: Not Reviewed Attestations 2 Medical Necessity Statement*: per caitlin Coding Level of Care Code Acute Code for [facility] Fwd Diagnoses Hyponatremia E87.1
--- NOTE | 2024-07-06 13:57 | PHA.VACGOAL ---
Vancomycin Goal - Goal Vancomycin Goal:: 15-20 mg/L Vancomycin Indication:: Pneumonia - Therapy Current therapy:: Pip/Tazo Day of therpy:: Day [1]of [] . Actual body weight (kg): 44.044 kg - Data Labs: WBC 19.27 10^3/uL (3.29-11.43) H 07/06/24 02:32 RBC 3.47 10^6/uL (3.85-5.65) L 07/06/24 02:32 Hgb 9.90 g/dL (11.27-16.99) L 07/06/24 02:32 Hct 29.8 % (36-47) L 07/06/24 02:32 MCV 85.9 fl (85-98) 07/06/24 02:32 MCH 28.5 pg (27-33) 07/06/24 02:32 MCHC 33.2 g/dL (30-55) 07/06/24 02:32 RDW 13.9 % (12.1-15.1) 07/06/24 02:32 Sodium 128 mmol/L (136-145) L 07/06/24 09:00 Potassium 3.8 mmol/L (3.5-5.1) 07/06/24 09:00 Chloride 89 mmol/L (98-107) L 07/06/24 09:00 Carbon Dioxide 28 mmol/L (22-29) 07/06/24 09:00 Anion Gap 14.8 (5-19) 07/06/24 09:00 BUN 31 mg/dL (8-23) H 07/06/24 09:00 Creatinine 1.0 mg/dL (0.5-0.9) H 07/06/24 09:00 GFR Calculation Not Reportable 07/06/24 09:00 Treatment plan:: new consult Regimen:: New start vancomycin for Pneumonia. No prior history of vancomycin found. Load dose of 750 mg ordered. Due to Crcl <30 mL/min will start patient on pulse dosing load. Vancomycin level ordered for 07/07 @1000.
[2024-07-06] MEDS: piperacillin-tazobactam 3.375 GM in sodium chloride 0.9% (plus) 50 ML IV ×2 (14:19→22:08)
[2024-07-06 14:31] LABS: Blood Urea Nitrogen 40 mg/dL (8-23); Calcium 8.8 mg/dL (8.5-10.5); Carbon Dioxide 26 mmol/L (22-29); Chloride 89 mmol/L (98-107); Creatinine Clr Calc Pharmacy 24.5801; Glucose 177 mg/dL (65-115); Osmolality Calculated 280 mOsm/kg (285-295); Sodium 128 mmol/L (136-145)
--- NOTE | 2024-07-06 15:05 | P.PN_ITS ---
Subjective 2 Subjective: Seen today. Sodium improved to 128 WBC count 19.27. Worsening leukocytosis present however clinically patient doing better. Creatinine 1.1 today. Sodium 128. Phosphorus 1.7. On 2 L oxy mask at this time. Vitals/I&O/Wt Last Vital Signs Temp 97.5 F L 07/06/24 11:46 Pulse 77 07/06/24 11:46 Resp 16 07/06/24 11:46 BP 112/45 07/06/24 11:46 Pulse Ox 96 07/06/24 11:46 O2 Del Method Oxymask 07/06/24 11:46 O2 Flow Rate 2 07/05/24 20:00 07/06/24 07/06/24 07/06/24 06:59 14:59 22:59 Intake Total 100 / 690 1070 / 1070 Output Total 600 / 850 Balance -500 / -160 1070 / 1070 Weight last 48 hrs Weight 44.044 kg Weight 43.817 kg Physical Exam 2 Narrative: Awake , alert , family at bedside Currently on room air GCS 15 Nonfocal neuroexam Hard of hearing Pleasant and very cooperative No sign of focal deficit or seizure No sign of lower extremity edema Sarcopenia S1, S2 Data 07/06/24 02:32 07/06/24 14:01 Micro: Microbiology 07/05/24 20:55 Bacterial Antigens - Final Urine,Voided 07/05/24 20:55 Legionella Urinary Antigen - Final Urine,Voided 07/05/24 17:51 Blood Culture - Preliminary Blood SPECIMEN COLLECTED 07/05/24 17:49 Blood Culture - Preliminary Blood SPECIMEN COLLECTED A&P Assessment and plan (1) Hyponatremia: (2) Multifocal pneumonia: (3) KRISTEN (acute kidney injury): (4) Supplemental oxygen dependent: (5) Coughing: (6) RSV bronchiolitis: (7) Leukocytosis: Plan Hypovolemic hyponatremia Requested TSH uric acid along urine and serum osmolarity, urine sodium IV fluids did improve her sodium from 1 18-122: IV fluids on hold As per nephro she was put on fluid restriction Discontinue hydrochlorothiazide and losartan Patient endorsing poor p.o. intake Frequent sodium check every 4 hours Goal sodium correction 6 mEq in 24 hours KRISTEN: Anticipate improvement with IV fluids discontinue combination of losartan and hydrochlorothiazide Sweeney catheter in place Hypertension: Will need to adjust her antihypertensive medication continue regimen I will continue metoprolol, add amlodipine Avoid losartan and hydrochlorothiazide Full code Regular diet with fluid restriction DVT prophylaxis: Heparin Family not at the bedside: Will touch base with PCP to get more records about her past medical history 07/03/2024 continue bmp q4h Will monitor normal saline and off of Lexapro and hydrochlorothiazide. We may need to give 2% saline if sodium remains low. Will replace potassium. 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 -She has a normal TSH level, on levothyroxine as patient has hypothyroidism. -Continue free water restrict the patient -Will monitor serum chemistries every 6 hours. For now continue with normal saline. If serum sodium drops or if she becomes more confused she may need hypertonic saline. will transfer to floor today appreciate recommendations from nephrology 07/04/2024 continue bmp q4h continue urea once sodium > 130, will consider dc home appreciate nephro recs check pt/ot continue to hold lexapro, HCTZ 07/05/2024 Multilobar pneumonia Supplemental oxygen dependent requiring 2 L nasal cannula. Check bacterial antigen and Streptococcus Legionella. High suspicion of Legionella as patient is hyponatremic. Must be ruled out. Will continue on ceftriaxone azithromycin. ? Hyponatremia generally most likely secondary to Lexapro use. Continue to hold. Continue to hold losartan hydrochlorothiazide. ? Continue amlodipine at this time for hypertension. ? Check sputum culture Gram stain ? CT chest does show evidence of multilobar pneumonia. ? Sodium 121 this morning. Patient did get 4 urea 15 g one-time dose this morning. Continue to check sodium every 4 hours. ? Nephrology following. Appreciate recommendations. Patient will likely need to be discharged on urea when she is medically optimized to go home. She will also likely require oxygen at time of discharge. Continue to provide supportive care otherwise. DuoNeb every 6 hours as needed. 07/06/2024 Order oral phosphorus Sodium 128. Nephrology following Continue Vanco and Zosyn for multifocal pneumonia Legionella negative. Continue to provide supportive care. White count 19,000 today. I will stop prednisone 10 daily that she is on since hospital admission. He does not take steroids at home. Leukocytosis possibly secondary to steroid use. Will continue to monitor. Denies any diarrhea at this time. Possible and potential discharge in next 24 to 48 hours pending labs and clinical improvement. PDMP PDMP Reviewed: Not Reviewed Attestations 2 Medical Necessity Statement*: Leukocytosis. Requires broad-spectrum antibiotics for multifocal pneumonia. Leukocytosis worsening at this time. Needs continued monitoring in the hospital. Diagnoses Hyponatremia E87.1 Multifocal pneumonia J18.9 KRISTEN (acute kidney injury) N17.9 Supplemental oxygen dependent Z99.81 Coughing R05.9 RSV bronchiolitis J21.0 Leukocytosis D72.829
[2024-07-06 16:36] LABS: Glucose Point of Care 179 mg/dL (70-110)
[2024-07-06] MEDS: insulin lispro 100 unit/1 mL SUBCUT (17:11)
[2024-07-06 18:40] LABS: Alanine Aminotransferase 9 U/L (0-33); Albumin Level 3.9 g/dL (3.5-5.2); Alkaline Phosphatase 61 U/L (35-105); Anion Gap 17.1 (5-19); Aspartate Amino Transferase 13 U/L (0-32); Blood Urea Nitrogen 51 mg/dL (8-23); Calcium 8.9 mg/dL (8.5-10.5); Carbon Dioxide 25 mmol/L (22-29); Chloride 89 mmol/L (98-107); Creatinine Clr Calc Pharmacy 27.0381; Globulin 2.3 g/dL (1.3-4.6); Glucose 158 mg/dL (65-115); Osmolality Calculated 281 mOsm/kg (285-295); Potassium 4.1 mmol/L (3.5-5.1); Sodium 127 mmol/L (136-145); Total Bilirubin 0.4 mg/dL (0.15-1.2); Total Protein 6.2 g/dL (6.6-8.7)
[2024-07-06 20:50] LABS: Glucose Point of Care 141 mg/dL (70-110)
[2024-07-06 22:40] LABS: Anion Gap 16.3 (5-19); Blood Urea Nitrogen 60 mg/dL (8-23); Carbon Dioxide 27 mmol/L (22-29); Chloride 91 mmol/L (98-107); Creatinine Clr Calc Pharmacy 24.5801; Glucose 126 mg/dL (65-115); Osmolality Calculated 288 mOsm/kg (285-295); Potassium 4.3 mmol/L (3.5-5.1); Sodium 130 mmol/L (136-145)
[2024-07-07] MEDS: TRAMadol 50 mg Tablet PO ×4 (00:47→12:47)
[2024-07-07 04:00] VITALS: BP 107/46; PULSE 72; RESP 17; TEMP 36.5; O2SAT 98
[2024-07-07] MEDS: albumin 25 G/100 ML BAG 60 G IV ×2 (04:19→12:45)
[2024-07-07 04:44] LABS: Basophils # 0.1 10^3/uL (0.0-0.1); Basophils % 0.6 %; Eosinophils # 0.1 10^3/uL (0.0-0.8); Eosinophils % 0.3 %; Hematocrit 27.5 % (36-47); Lymphocytes # 1.4 10^3/uL (0.8-4.8); Lymphocytes % 8.3 %; Mean Corpuscular HGB Conc 32.4 g/dL (30-55); Mean Corpuscular Hemoglobin 28.4 pg (27-33); Mean Corpuscular Volume 87.9 fl (85-98); Mean Platelet Volume 8.9 fL (7.4-10.4); Monocytes % 6.3 %; Neutrophils # 13.08 10^3/uL (1.8-7.7); Neutrophils % 80.3 %; Nucleated Red Blood Cells % 0 %; Platelet Count 364 10^3/cmm (157-399); Red Blood Count 3.13 10^6/uL (3.85-5.65); Red Cell Distribution Width 14.2 % (12.1-15.1); White Blood Count 16.29 10^3/uL (3.29-11.43)
[2024-07-07 05:07] VITALS: PULSE 63
[2024-07-07 05:10] LABS: Anion Gap 15.2 (5-19); Blood Urea Nitrogen 50 mg/dL (8-23); Calcium 9.2 mg/dL (8.5-10.5); Carbon Dioxide 30 mmol/L (22-29); Chloride 92 mmol/L (98-107); Creatinine Clr Calc Pharmacy 24.6052; Glucose 91 mg/dL (65-115); Magnesium 1.9 mg/dL (1.7-2.3); Osmolality Calculated 289 mOsm/kg (285-295); Potassium 4.2 mmol/L (3.5-5.1); Sodium 133 mmol/L (136-145)
[2024-07-07] MEDS: piperacillin-tazobactam 3.375 GM in sodium chloride 0.9% (plus) 50 ML IV (05:24)
[2024-07-07 06:48] LABS: Glucose Point of Care 86 mg/dL (70-110)
[2024-07-07 07:14] VITALS: BP 100/39; PULSE 65; RESP 16; TEMP 36.3; O2SAT 91
[2024-07-07] MEDS: magnesium oxide 400 mg tablet PO (08:22)
[2024-07-07] MEDS: sodium chloride 1 gm Tablet PO (08:22)
[2024-07-07] MEDS: levothyroxine 50 mcg Tablet PO (08:22)
[2024-07-07] MEDS: heparin 5,000 unit/mL INJ 1 mL 5000 UNIT SUBCUT (08:23)
[2024-07-07] MEDS: lactulose oral liq 20 gm/30 mL UDC 10 GM PO (09:04)
[2024-07-07] MEDS: sennosides-docusate Tablet 1 TAB PO (09:04)
[2024-07-07 10:35] LABS: Vancomycin Trough 6.5 ug/mL (10-15)
[2024-07-07 10:55] LABS: Glucose Point of Care 121 mg/dL (70-110)
[2024-07-07 11:00] VITALS: PULSE 75; RESP 18; O2SAT 90; O2SAT 93
[2024-07-07 11:17] VITALS: BP 117/70; PULSE 82; RESP 15; TEMP 36.3; O2SAT 90
[2024-07-07] MEDS: VANCOMYCIN ADD-Vantage 750 MG in 0.9% NaCl ADD-Vantage 250 ML 250 MG IV (11:42)
--- NOTE | 2024-07-07 12:09 | PM.PN ---
Subjective Subjective: no new c/o Medications: Reviewed: Yes Vitals/I&O/Wt Last Vital Signs Temp 97.4 F L 07/07/24 11:17 Pulse 82 07/07/24 11:17 Resp 15 07/07/24 11:17 BP 117/07 07/07/24 11:17 Pulse Ox 90 07/07/24 11:17 O2 Del Method Room Air 07/07/24 11:17 O2 Flow Rate 2 07/05/24 20:00 07/06/24 07/07/24 07/07/24 22:59 06:59 14:59 Intake Total 630 / 1700 150 / 1850 290 / 290 Output Total 400 / 400 Balance 230 / 1300 150 / 1450 290 / 290 Weight last 48 hrs Weight 44.089 kg Weight 44.044 kg Physical Exam Narrative: Awake , alert , family at bedside Hypertensive Currently on room air GCS 15 Nonfocal neuroexam Hard of hearing Pleasant and very cooperative No sign of focal deficit or seizure No sign of lower extremity edema Sarcopenia S1, S2 Data 07/07/24 04:37 07/07/24 04:37 Micro: Microbiology 07/05/24 17:51 Blood Culture - Preliminary Blood NEGATIVE TO DATE 07/05/24 17:49 Blood Culture - Preliminary Blood NEGATIVE TO DATE 07/05/24 20:55 Bacterial Antigens - Final Urine,Voided A&P Assessment and plan (1) Hyponatremia: 89-year-old lady with hypertension on thiazide depression on Lexapro chronic pain on tramadol and hypothyroidism on levothyroxine. 1. Hyponatremia -likely from diuretics and escitalopram. Please note the patient is urine sodium was elevated which can be due to her thiazide, or from her SSRI, escitalopram. The patient was also on a low protein low salt diet. The patient's sodium has improved from 118-128. She received some 3% saline . She also received normal saline. -Continue to hold Lexapro and thiazide.. Will replace potassium. 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 -She has a normal TSH level, on levothyroxine as patient has hypothyroidism. -Continue free water restriction, added urea tabs, decrease salt tabs to once daily , change BMP to BID Na 128 today 2. KRISTEN from prerenal azotemia creatinine improved from 1.2 to 1.0 mg off of thiazides and with IV fluids. 3. Hypertension avoid thiazide diuretics. She is currently on amlodipine, metoprolol add hydralazine 25 mg po tid. -Follow-up renal artery duplex. However given advanced age would recommend treating medically as her creatinine is 1.0. 4. Mild anemia of 10.8 hemoglobin. Hemoglobin likely dropping with IV fluids she was likely depleted. 5. The patient has leg cramping try to potassium at 4 and magnesium at 2. Consider gabapentin however I am concerned it may affect affect her mental status. Once patient is stable with a sodium over 130 hopefully can discharge with outpatient follow-up. The patient was seen examined using audiovisual equipment with the aid of a nurse. The patient and her family consented to telehealth. Will monitor her labs along with you. Plan See above - monitor labs PDMP PDMP Reviewed: Not Reviewed Attestations Medical Necessity Statement*: per caitlin Coding Level of Care Code Acute Code for [facility] Diagnoses Hyponatremia E87.1
--- NOTE | 2024-07-07 12:20 | PM.DCS ---
Discharge Providers Date of Admission: 07/02/24 17:19 Date of Discharge: July 07, 2024 Attending Provider at Admission: Vidya Alicia MD Attending Provider at Discharge: Vidya Alicia MD Primary Care Provider: Crissy Cruz MD Diagnoses at Discharge Discharge Diagnosis (1) Hyponatremia: Status: Acute Reason for Visit Reason for Visit: not eatting/drinking Hospital Course Hospital Course Patient presented to the hospital for dehydration pneumonia RSV infection and was found to be hyponatremic at 118. It is difficult to correct her sodium and she required multiple doses of salt tablets hypertonic saline fluids fluid restriction, urea. Eventually sodium stabilized on salt tablets. She will be sent home on the above. Patient does take Lexapro at home which will be stopped for now. She will follow-up with her primary care doctor going forward. She was also treated for pneumonia with broad-spectrum antibiotics vancomycin and Zosyn. She was also on prednisone 10 mg during hospital stay however that was discontinued. Leukocytosis most likely secondary to that. Hemoglobin was 11.5 on admission and today 8.9. She has been having frequent blood draws BMP every 4 hours due to her sodium. I believe this is iatrogenic anemia. She has no evidence of any hematochezia hemoptysis hematuria at this time. He will be given follow-up labs to do as an outpatient. Patient feeling well today. She is on room air and did not qualify for home oxygen. Patient was also seen by PT OT. She will be sent home on amoxicillin clavulanate for another 5 days to complete course. Patient is back to her baseline. Sisters present at bedside. Patient expressed agreeable with plan above. Physical Exam Narrative: Awake , alert , family at bedside Currently on room air GCS 15 Nonfocal neuroexam Hard of hearing Pleasant and very cooperative No sign of focal deficit or seizure No sign of lower extremity edema Sarcopenia S1, S2 Discharge Data Studies Completed and Pending Completed Studies During Hospitalization Category Date Time Status CT chest wo con [id number] Urgent Cat Scan 07/05/24 09:44 Completed XR chest 1V portable [id number] Stat Exams 07/02/24 14:38 Completed US renal doppler [CV renal doppler [id number]] Routine Ultrasound 07/03/24 16:26 Completed Pending at discharge Category Date Time Status Blood Culture Stat Lab 07/05/24 17:51 Results Complete Blood Count w/Auto AM LABS Lab 07/08/24 04:00 Ordered Osmolality Serum Stat Lab 07/02/24 18:46 Received Osmolality Urine Stat Lab 07/02/24 15:58 Received Sputum Culture and Gram Stain Stat Lab 07/05/24 12:26 Uncollected Radiology Impressions Chest X-Ray 07/02/24 14:38 Impression: Atherosclerosis and hyperinflation. Chest CT 07/05/24 09:44 IMPRESSION: Multilobar pneumonia. Laboratory Results WBC 16.29 10^3/uL (3.29-11.43) H 07/07/24 04:37 RBC 3.13 10^6/uL (3.85-5.65) L 07/07/24 04:37 Hgb 8.90 g/dL (11.27-16.99) L 07/07/24 04:37 Hct 27.5 % (36-47) L 07/07/24 04:37 MCV 87.9 fl (85-98) 07/07/24 04:37 MCH 28.4 pg (27-33) 07/07/24 04:37 MCHC 32.4 g/dL (30-55) 07/07/24 04:37 RDW 14.2 % (12.1-15.1) 07/07/24 04:37 Plt Count 364 10^3/cmm (157-399) 07/07/24 04:37 MPV 8.9 fL (7.4-10.4) 07/07/24 04:37 Neut % (Auto) 80.3 % 07/07/24 04:37 Lymph % (Auto) 8.3 % 07/07/24 04:37 [place] % (Auto) 6.3 % 07/07/24 04:37 Eos % (Auto) 0.3 % 07/07/24 04:37 Baso % (Auto) 0.6 % 07/07/24 04:37 Neut # (Auto) 13.08 10^3/uL (1.8-7.7) H 07/07/24 04:37 Lymph # (Auto) 1.4 10^3/uL (0.8-4.8) 07/07/24 04:37 [place] # (Auto) 1.0 10^3/uL (0.2-0.9) H 07/07/24 04:37 Eos # (Auto) 0.1 10^3/uL (0.0-0.8) 07/07/24 04:37 Baso # (Auto) 0.1 10^3/uL (0.0-0.1) 07/07/24 04:37 Nucleated RBC % (auto) 0 % 07/07/24 04:37 Total Counted 100 (0-100) 07/02/24 14:43 Atypical Lymphs % 0.0 % (0-5) 07/02/24 14:43 Absolute Neutrophils 7.9 10^3/cmm (1.4-6.5) H 07/02/24 14:43 Segmented Neutrophils 66 % 07/02/24 14:43 Band Neutrophils 2.0 % 07/02/24 14:43 Absolute Lymphocytes 2.0 10^3/cmm (1.2-3.4) 07/02/24 14:43 Lymphocytes (Manual) 17 % 07/02/24 14:43 Monocytes (Manual) 10.0 % 07/02/24 14:43 Absolute Monocytes 1.2 10^3/cmm (0.1-0.6) H 07/02/24 14:43 Eosinophils (Manual) 1 % 07/02/24 14:43 Absolute Eosinophils 0.1 10^3/cmm (0.0-0.7) 07/02/24 14:43 Basophils (Manual) 1.0 % 07/02/24 14:43 Absolute Basophils 0.1 10^3/cmm (0.0-0.2) 07/02/24 14:43 Metamyelocytes 1.0 % 07/02/24 14:43 Myelocytes 2.0 % 07/02/24 14:43 Nucleated RBCs # 0.0 /100WBC 07/07/24 04:37 Platelet Estimate Increased (Normal) H 07/02/24 14:43 Sodium 133 mmol/L (136-145) L 07/07/24 04:37 Potassium 4.2 mmol/L (3.5-5.1) 07/07/24 04:37 Chloride 92 mmol/L (98-107) L 07/07/24 04:37 Carbon Dioxide 30 mmol/L (22-29) H 07/07/24 04:37 Anion Gap 15.2 (5-19) 07/07/24 04:37 BUN 50 mg/dL (8-23) H 07/07/24 04:37 Creatinine 1.1 mg/dL (0.5-0.9) H 07/07/24 04:37 GFR Calculation Not Reportable 07/07/24 04:37 Glucose 91 mg/dL (65-115) 07/07/24 04:37 POC Glucose 121 mg/dL (70-110) H 07/07/24 10:52 Calculated Osmolality 289 mOsm/kg (285-295) 07/07/24 04:37 Uric Acid 3.3 mg/dL (2.4-5.7) 07/02/24 18:46 Calcium 9.2 mg/dL (8.5-10.5) 07/07/24 04:37 Phosphorus 1.7 mg/dL (2.5-4.5) L 07/06/24 02:32 Magnesium 1.9 mg/dL (1.7-2.3) 07/07/24 04:37 Total Bilirubin 0.4 mg/dL (0.15-1.2) 07/06/24 18:11 AST 13 U/L (0-32) 07/06/24 18:11 ALT 9 U/L (0-33) 07/06/24 18:11 Alkaline Phosphatase 61 U/L (35-105) 07/06/24 18:11 Creatine Kinase 206 U/L (26-192) H 07/02/24 14:43 C-Reactive Protein 122.1 mg/L (0.0-4.9) H 07/03/24 04:14 Total Protein 6.2 g/dL (6.6-8.7) L 07/06/24 18:11 Albumin 3.9 g/dL (3.5-5.2) 07/06/24 18:11 Globulin 2.3 g/dL (1.3-4.6) 07/06/24 18:11 TSH 2.32 uIU/mL (0.27-4.20) 07/02/24 18:46 Urine Color Yellow (Yellow) 07/02/24 15:58 Urine Appearance Clear (CLEAR) 07/02/24 15:58 Urine pH 6.0 (5-7) 07/02/24 15:58 Ur Specific [place] 1.014 (1.005-1.030) 07/02/24 15:58 Urine Protein Trace (Negative) A 07/02/24 15:58 Urine Glucose (UA) Negative (Normal) 07/02/24 15:58 Urine Ketones Negative (Negative) 07/02/24 15:58 Urine Blood Negative (Negative) 07/02/24 15:58 Urine Nitrate Negative (Negative) 07/02/24 15:58 Urine Bilirubin Negative (Negative) 07/02/24 15:58 Urine Urobilinogen 1.0 mg/dL (Negative) 07/02/24 15:58 Ur Leukocyte Esterase Negative (Negative) 07/02/24 15:58 Urine RBC 0-2 /hpf (0-2) 07/02/24 15:58 Urine WBC 0-5 /hpf (0-5) 07/02/24 15:58 Ur Squamous Epith Cells 0-5 /hpf (0-5) 07/02/24 15:58 Amorphous Sediment Not Reportable 07/02/24 15:58 Urine Bacteria None seen /hpf (NONE) 07/02/24 15:58 Hyaline Casts 0-4 /lpf H 07/02/24 15:58 Ur Random Sodium 74 mmol/L 07/03/24 02:15 Ur Random Potassium 21 mmol/L 07/03/24 02:15 Ur Random Chloride 70 mmol/L 07/03/24 02:15 Urine Creatinine 79 mg/dL (28-217) 07/02/24 15:58 Vancomycin Trough 6.5 ug/mL (10-15) L 07/07/24 10:09 Influenza A (PCR) Negative (Negative) 07/02/24 13:10 Influenza Type B (PCR) Negative (Negative) 07/02/24 13:10 RSV (PCR) Positive (Negative) A 07/02/24 13:10 SARS-CoV-2 (PCR) Negative (Negative) 07/02/24 13:10 Vitals Last Vital Signs Temp 97.4 F L 07/07/24 11:17 Pulse 82 07/07/24 11:17 Resp 15 07/07/24 11:17 BP 117/07 07/07/24 11:17 Pulse Ox 90 07/07/24 11:17 O2 Del Method Room Air 07/07/24 11:17 O2 Flow Rate 2 07/05/24 20:00 Discharge Plan Discharge Patient Disposition: Home Health Service Condition: Stable Prescriptions: New sodium chloride 1,000 mg Tablet,Soluble 1,000 mg PO BID Qty: 60 0RF amoxicillin-pot clavulanate 875-125 mg tablet 1 tab PO BID 5 Days Qty: 10 0RF Continued gemfibrozil 600 mg tablet 600 mg PO BID levothyroxine 50 mcg tablet 50 mcg PO DAILY metoprolol tartrate 50 mg tablet 50 mg PO BID Held tramadol 50 mg tablet 100 mg PO Q8H Hold Instructions: see pcp Discontinued doxycycline hyclate 100 mg capsule 100 mg PO BID losartan-hydrochlorothiazide 100-25 mg tablet 1 tab PO DAILY escitalopram oxalate 10 mg tablet 10 mg PO QPM Discharge Orders: Discharge Order (Routine); Ordered 07/07/24 Ordered By: Vidya Alicia Other Ambulatory Orders: Basic Metabolic Panel (Routine) Timeframe: 2 Days Facility: [facility] - Location: Lab - Main Lab Ordered By: Vidya Alicia Basic Metabolic Panel (Routine) Timeframe: 20240711 Facility: [facility] - Location: Lab - Main Lab Ordered By: Vidyasurya Alicia Complete Blood Count w/Auto (Routine) Timeframe: 2 Days Location: Determined by Patient Ordered By: Vidya Maral Complete Blood Count w/Auto (Routine) Timeframe: 20240711 Location: Determined by Patient Ordered By: Vidyasurya Alicia Referrals: Crissy Cruz MD [Primary Care Provider] - 07/14/24 9:45 am Discharge Diet: Cardiac Discharge Activity: Resume usual activity Patient Instructions: Sodium Chloride (By mouth), Hyponatremia (DC), 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
--- NOTE | 2024-07-07 15:16 | PC.NURSE ---
Discharge Note Patient discharged to home via private vehicle accompanied by sister and niece. Discharge instructions reviewed with patient and/or account service representative. Mobile pharmacy medications and/or prescriptions provided. Belongings/home medications returned.
[2024-07-07 16:00] LABS: Osmolality Urine 411 mOsm/kg (50-1200)
[2024-07-07 16:06] VITALS: BP 117/70; PULSE 82; RESP 15; TEMP 36.3; O2SAT 94
[2024-07-08 12:19] LABS: Osmolality Serum 335 mOsm/kg (278-305)
== END 2024-07-07 14:30 | disposition home health service (06) | DRG 682 ==
LOC: ER 15:37 → ICU 23:34 → MEDSURG 07-03 14:58
PROVIDERS: Emergency Medicine; Hospitalist; Internal Medicine; Internal Medicine Nephrology; Admitting Provider Internal Medicine; Emergency Provider Family Medicine; PCP Family Medicine; Visit Provider Internal Medicine
DX: N17.9 Acute kidney failure, unspecified (principal); J18.9 Pneumonia, unspecified organism; E87.1 Hypo-osmolality and hyponatremia; J21.0 Acute bronchiolitis due to respiratory syncytial virus; E86.0 Dehydration; T43.225A Adverse effect of selective serotonin reuptake inhibitors, initial encounter; D64.89 Other specified anemias; I10 Essential (primary) hypertension; E03.9 Hypothyroidism, unspecified; F32.A Depression, unspecified
CPT/HCPCS: 36415; 36416; 71045; 71250; 80048; 80053; 80202; 81001; 82436; 82550; 82570; 82962; 83735; 83930; 83935; 84100; 84133; 84295; 84300; 84443; 84550; 85007; 85025; 86140; 86403; 87040; 87449; 87637; 93005; 93975; 94640; 94664; 94760; 96360; 96372; 97110; 97116; 97162; 97530; 99285; G0378; J0456; J0696; J1644; J1815; J1940; J2543; J3370; J7030; J7050; J7131; J7512; J9999; P9046